=== PATIENT | female | born 2000 | race Caucasian/White ===

== ENCOUNTER 2023-03-27 23:19 | Emergency (ER) | payer OTHER, SELFPAY ==
[2023-03-27 23:33] VITALS: BP 125/82; PULSE 82; RESP 16; TEMP 36.5; O2SAT 98; BMI 49.1
--- NOTE | 2023-03-28 00:22 | HMH.EDHA ---
Discharge Plan Disposition Patient Disposition: Home, Self-Care Condition: Fair Prescriptions Prescriptions: No Action ropinirole 1 mg tablet 1 mg PO DAILY norethindrone-e.estradiol-iron 1 mg-20 mcg (21)/75 mg (7) tablet 1 tab PO DAILY buspirone 10 mg tablet 10 mg PO DAILY hydroxyzine HCl 25 mg tablet 25 mg PO DAILY escitalopram oxalate [Lexapro] 20 mg tablet 20 mg PO DAILY aripiprazole 10 mg tablet 7.5 mg PO DAILY Rx Instructions: *MD changed her to 10mg, but she felt that was too much so she self adjusted and is taking 7.5mg at this time. Referrals Follow up/Referrals: Ori Vincent MD [Primary Care Provider] - See instructions Clinical Impressions Clinical Impression: Headache, Elevated liver enzymes Stand Alone Forms Stand Alone Forms: Work/School Release Instructions Patient Instructions: DI for Headache Discharge ED Provider: Efren (ED)Je Headache HPI General Chief Complaint: Headache Stated Complaint: severe headache Time Seen by Provider: 03/28/23 00:23 Mode of Arrival: Family Vehicle Source of Information: Patient and Medical Record Limitations: No Limitations Description of Symptoms (Recalled from ER Triage Doc. by RN): 22 yo female presents with CC of intense headache along my muslim area bilaterally, with slight visual issue noted earlier this date where she stated she was noting her vision to have black spots peripheally. Patient denies LOC. VSS. States that she saw her MD earlier this week for medication adjustment due to symptoms associated with loss of her brother 6 weeks ago. 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 Afebrile. History of Present Illness HPI Narrative: bilat temp and occipital gonzalez with some visual sx- no fever/rash or trauma and diff gonzalez than baseline MD Complaint: headache Onset (ago): hour(s) Onset description: gradual Location: temporal and occipital Severity: moderate Quality: different than previous headaches Associated symptoms: none Treatments prior to arrival: none Related Data Home Medications Medication Instructions Recorded Confirmed aripiprazole 10 mg tablet 7.5 mg PO DAILY antipsychotic 03/27/23 03/27/23 buspirone 10 mg tablet 10 mg PO DAILY antipsychotic 03/27/23 03/27/23 escitalopram oxalate 20 mg tablet 20 mg PO DAILY Depression 03/27/23 03/27/23 (Lexapro) hydroxyzine HCl 25 mg tablet 25 mg PO DAILY Anxiety 03/27/23 03/27/23 norethindrone 1 mg-ethinyl 1 tab PO DAILY control 03/27/23 03/27/23 estradiol 20 mcg (21)-iron 75 mg (7) tablet ropinirole 1 mg tablet 1 mg PO DAILY unk 03/27/23 03/27/23 Allergies Allergy/AdvReac Type Severity Reaction Status Date / Time No Known Allergies Allergy Verified 03/27/23 23:38 [facility] History Hepatitis A Screen Attestation statement:: This patient has been screened for Hepatitis A risk factors. I have reviewed the patient's past medical history: Yes Social History Smoking Status: Current every day smoker [facility] Disclaimer: The information contained in this section may have been updated after the patient was seen, as this information can be updated by other users. Social History Smoking Status: Current every day smoker alcohol intake: never current occupational status: employed Travel in the last 8 weeks: None ROS Obtained: Yes All systems reviewed & no additional complaints except as documented Physical Exam General General appearance: alert and obese Head Head exam: normocephalic Eye Eye exam: Present PERRL and EOMI ENT ENT exam: Present mucous membranes moist Neck Neck exam: Present trachea midline Respiratory Respiratory exam: Absent respiratory distress Cardiovascular Cardiovascular exam: Present regular rate Abdominal Exam Abdominal exam: Present soft Extremities Exam Extremities exam: Present full ROM Neurological Exam Neurological exam: Pre
--- NOTE | 2023-03-28 00:35 | CT_ITS ---
PROCEDURE INFORMATION: Exam: CT Head Without Contrast Exam date and time: 03/28/2023 1:21 AM Age: 22 years old Clinical indication: Pain; Patient HX: States HX of concussions. C/O headache in the back of her head; Additional info: [place] TECHNIQUE: Imaging protocol: Computed tomography of the head without contrast. Radiation optimization: All CT scans at this facility use at least one of these dose optimization techniques: automated exposure control; mA and/or kV adjustment per patient size (includes targeted exams where dose is matched to clinical indication); or iterative reconstruction. REPORTING DATA: Count of CT and Cardiac NM exams in prior 12 months: This patient has received 0 known CTs and 0 known cardiac nuclear medicine studies in the 12 months prior to the current study. COMPARISON: No relevant prior studies available. FINDINGS: Brain: Normal. No hemorrhage. Unremarkable white matter. No mass effect. Cerebral ventricles: No ventriculomegaly. Pituitary gland and sella: Negative Paranasal sinuses: Mucous retention cyst right maxillary sinus. Mastoid air cells: Visualized mastoid air cells are well aerated. Orbital cavities: Negative. Parotid and submandibular glands: Negative Bones/joints: Unremarkable. No acute fracture. Soft tissues: Unremarkable. Vasculature: Negative. IMPRESSION: No evidence for intracranial hemorrhage, mass lesions or acute stroke.
[2023-03-28 00:43] LABS: Basophils # 0.1 K/mm3 (0-0.2); Basophils % 0.8 % (0.1-2.0); Eosinophils # 0.3 K/mm3 (0.0-0.4); Hematocrit 41.3 % (37.0-47.0); Hemoglobin 14.3 g/dL (12.2-16.2); Lymphocytes % 44.9 % (10-50); Mean Corpuscular HGB Conc 34.6 g/dL (31.8-35.4); Mean Corpuscular Hemoglobin 31.5 pg (27.0-31.2); Mean Corpuscular Volume 91.1 fl (81-99); Mean Platelet Volume 7.5 fl (7.4-10.4); Monocytes # 0.5 K/mm3 (0.1-1.0); Monocytes % 4.9 % (1.7-9.3); Neutrophils # 5.2 K/mm3 (1.8-7.8); Neutrophils % 46.5 % (37.0-80.0); Platelet Count 448 K/mm3 (142-424); Red Blood Count 4.53 M/mm3 (4.20-5.40); White Blood Count 11.2 K/mm3 (4.5-13.0)
[2023-03-28 00:48] LABS: Potassium 3.7 mmoL/L (3.5-5.1); Sodium 138 mmol/L (136-145)
[2023-03-28 00:49] LABS: Chloride 100 mmol/L (98-107)
[2023-03-28 00:50] LABS: Alanine Aminotransferase 87 U/L (12-78); Alkaline Phosphatase 81 U/L (38-126); Aspartate Amino Transferase 85 U/L (14-36); Blood Urea Nitrogen 15 mg/dl (7-17); Creatinine Clearance Estimated 90 mL/min (50-200); Estimated Glomerular Filt Rate 80 ml/min (>60); GFR (African American) 97 ML/MIN (>60)
[2023-03-28 00:51] LABS: Albumin Level 4.1 g/dl (3.5-5.0); Albumin/Globulin Ratio 1.4 (1.1-1.8); Anion Gap 17.7 mEq/L (5-15); Calcium 9.1 mg/dl (8.4-10.2); Carbon Dioxide 24 mmol/L (22.0-30.0); Globulin 2.9 g/dL (1.3-3.2); Glucose 91 mg/dl (74-100)
[2023-03-28 00:57] LABS: C-Reactive Protein 11.8 mg/L (0-4)
[2023-03-28 01:04] LABS: Bilirubin,Total 0.1 mg/dl (0.2-1.3)
[2023-03-28 01:12] LABS: Erythrocyte Sedimentation Rate 16 mm/hr (0-20)
[2023-03-28 03:04] VITALS: BP 121/85; PULSE 79; RESP 19; TEMP 36.7; O2SAT 98
== END 2023-03-28 05:16 | disposition home or self-care (01) ==
PROVIDERS: Emergency Provider Emergency Medicine; PCP Family Medicine
DX: R51.9 Headache, unspecified (principal); H53.8 Other visual disturbances; F17.200 Nicotine dependence, unspecified, uncomplicated
CPT/HCPCS: 70450; 80053; 85025; 85651; 86140; 96361; 96374; 99284; 99285; J0131

== ENCOUNTER 2024-03-15 02:49 | Emergency (ER) | payer OTHER, SELFPAY ==
--- NOTE | 2024-03-15 03:00 | ECG_ITS ---
APPROVED REPORT Exam: Resting ECG HR:84 bpm ECG Measurements Heart Rate 84 AXES SD 122 P 58 QRSd 89 QRS 100 QT 348 T -3 QTc 389 Conclusion SINUS RHYTHM BORDERLINE RIGHT AXIS DEVIATION [QRS AXIS > 90] ABNORMAL QRS-T ANGLE [QRS-T AXIS DIFFERENCE > 60] Electronically signed by : CAROLE FELIPE, 03/15/2024 03:38:35
[2024-03-15 03:01] VITALS: BP 151/89; PULSE 106; RESP 24; TEMP 36.6; O2SAT 96; BMI 49.9
--- NOTE | 2024-03-15 03:04 | CT_ITS ---
PROCEDURE INFORMATION: Exam: CT Head Without Contrast Exam date and time: 03/15/2024 3:39 AM Age: 23 years old Clinical indication: Numbness / parasthesia; Additional info: R sided numbness/tingling TECHNIQUE: Imaging protocol: Computed tomography of the head without contrast. Radiation optimization: All CT scans at this facility use at least one of these dose optimization techniques: automated exposure control; mA and/or kV adjustment per patient size (includes targeted exams where dose is matched to clinical indication); or iterative reconstruction. COMPARISON: CT HEAD/BRAIN WO CON 03/28/2023 1:21 AM FINDINGS: Brain: No hemorrhage. Unremarkable white matter. No mass effect. Preserved alvarado-white interfaces. Cerebral ventricles: No ventriculomegaly. Paranasal sinuses: Diffuse mucosal thickening throughout the maxillary sinuses. Remaining paranasal sinuses are clear. No acute air-fluid levels. Mastoid air cells: Visualized mastoid air cells are well aerated. Bones: Unremarkable. No acute fracture. Soft tissues: Unremarkable. IMPRESSION: 1. No evidence of acute intracranial hemorrhage, mass effect, or edema. 2. Maxillary sinus mucosal thickening without acute air-fluid levels.
--- NOTE | 2024-03-15 03:04 | CT_ITS ---
PROCEDURE INFORMATION: Exam: CTA Head With Contrast, Arteriography Exam date and time: 03/15/2024 3:59 AM Age: 23 years old Clinical indication: Numbness; Additional info: R sided numbness/tingling TECHNIQUE: Imaging protocol: Computed tomographic angiography of the head with contrast. Exam focused on the arteries. 3D rendering (Not supervised by radiologist): MIP and/or 3D reconstructed images were created by the technologist. Radiation optimization: All CT scans at this facility use at least one of these dose optimization techniques: automated exposure control; mA and/or kV adjustment per patient size (includes targeted exams where dose is matched to clinical indication); or iterative reconstruction. Contrast material: ISOVUE 370; Contrast volume: 100 ml; Contrast route: INTRAVENOUS (IV); COMPARISON: CT HEAD/BRAIN WO CON 03/15/2024 3:39 AM FINDINGS: ANTERIOR CIRCULATION: Right internal carotid artery: Intracranial segment is patent with no significant stenosis. No aneurysm. Right middle cerebral artery: No occlusion or significant stenosis. No aneurysm. Right anterior cerebral artery: No occlusion or significant stenosis. No aneurysm. Left internal carotid artery: Intracranial segment is patent with no significant stenosis. No aneurysm. Left middle cerebral artery: No occlusion or significant stenosis. No aneurysm. Left anterior cerebral artery: No occlusion or significant stenosis. No aneurysm. POSTERIOR CIRCULATION: Right vertebral artery: No occlusion or significant stenosis. No aneurysm. Left vertebral artery: No occlusion or significant stenosis. No aneurysm. Basilar artery: No occlusion or significant stenosis. No aneurysm. Right posterior cerebral artery: No occlusion or significant stenosis. No aneurysm. Left posterior cerebral artery: No occlusion or significant stenosis. No aneurysm. Veins: Patent venous dural sinuses and tributaries. Brain: No definite mass, mass effect, or midline shift. Cerebral ventricles: No ventriculomegaly. Dental: Impacted maxillary and mandibular molars. Bones/joints: Unremarkable. No acute fracture. Soft tissues: Tiny right parietal scalp soft tissue nodule. IMPRESSION: No evidence of large vessel occlusion, vascular malformation, or aneurysm. No visible intracranial atherosclerosis.
--- NOTE | 2024-03-15 03:04 | CT_ITS ---
PROCEDURE INFORMATION: Exam: CT Thoracic Spine Without Contrast Exam date and time: 03/15/2024 3:52 AM Age: 23 years old Clinical indication: Numbness; Additional info: R sided numbness/tingling TECHNIQUE: Imaging protocol: Computed tomography of the thoracic spine without contrast. Radiation optimization: All CT scans at this facility use at least one of these dose optimization techniques: automated exposure control; mA and/or kV adjustment per patient size (includes targeted exams where dose is matched to clinical indication); or iterative reconstruction. COMPARISON: CT CERVICAL SPINE WO CON 03/15/2024 3:50 AM FINDINGS: Bones/joints: No acute fracture. Normal alignment. No significant disc bulge or herniation. No severe spinal canal stenosis. No significant neural foraminal narrowing. Soft tissues: Unremarkable. IMPRESSION: Unremarkable CT Spine.
--- NOTE | 2024-03-15 03:04 | CT_ITS ---
PROCEDURE INFORMATION: Exam: CT Lumbar Spine Without Contrast Exam date and time: 03/15/2024 3:54 AM Age: 23 years old Clinical indication: Numbness; Additional info: R sided numbness/tingling TECHNIQUE: Imaging protocol: Computed tomography of the lumbar spine without contrast. Radiation optimization: All CT scans at this facility use at least one of these dose optimization techniques: automated exposure control; mA and/or kV adjustment per patient size (includes targeted exams where dose is matched to clinical indication); or iterative reconstruction. COMPARISON: CT THORACIC SPINE WO CON 03/15/2024 3:52 AM FINDINGS: Bones/joints: No acute fracture. Normal alignment. No significant disc bulge or herniation. No severe spinal canal stenosis. No significant neural foraminal narrowing. Soft tissues: Unremarkable. IMPRESSION: No acute findings.
--- NOTE | 2024-03-15 03:04 | CT_ITS ---
PROCEDURE INFORMATION: Exam: CTA Neck With Contrast Exam date and time: 03/15/2024 3:59 AM Age: 23 years old Clinical indication: Numbness; Additional info: R sided numbness/tingling TECHNIQUE: Imaging protocol: Computed tomographic angiography of the neck with contrast. Exam focused on the cervical segments of the vasculature. 3D rendering (Not supervised by radiologist): MIP and/or 3D reconstructed images were created by the technologist. Radiation optimization: All CT scans at this facility use at least one of these dose optimization techniques: automated exposure control; mA and/or kV adjustment per patient size (includes targeted exams where dose is matched to clinical indication); or iterative reconstruction. Contrast material: ISOVUE 370; Contrast volume: 100 ml; Contrast route: INTRAVENOUS (IV); COMPARISON: CT CERVICAL SPINE WO CON 03/15/2024 3:50 AM FINDINGS: Right common carotid artery: No stenosis. No dissection or occlusion. Right internal carotid artery: No stenosis of the extracranial segment. No dissection or occlusion. Right external carotid artery: No occlusion or stenosis of the origin. Left common carotid artery: No stenosis. No dissection or occlusion. Left internal carotid artery: No stenosis of the extracranial segment. No dissection or occlusion. Left external carotid artery: No occlusion or stenosis of the origin. Right vertebral artery: No stenosis. No dissection or occlusion. Left vertebral artery: No stenosis. No dissection or occlusion. Pharynx: Normal fossa of Rosenmuller. Normal tonsillar pillars. Larynx: Normal epiglottis. Symmetric vocal folds. Thyroid: Homogeneous thyroid. Soft tissues: Normal. No significant soft tissue swelling. Bones/joints: Normal appearance of the cervical spine without evidence of spinal canal or neural foraminal stenosis. Lungs: Clear lung apices. IMPRESSION: Widely patent carotid and vertebral arteries in the neck. REFERENCES: NASCET CRITERIA. The degree of stenosis in the cervical segment of the internal carotid artery is based on NASCET criteria. Normal is no stenosis. Mild is less than 50% stenosis. Moderate is 50-69% stenosis. Severe is 70% to 99% stenosis. Total occlusion is no detectable patent lumen.
--- NOTE | 2024-03-15 03:08 | ED_ITS ---
Discharge Plan Disposition Patient Disposition: Home, Self-Care Condition: Good Prescriptions Prescriptions: No Action aripiprazole 5 mg tablet 5 mg PO DAILY cetirizine 10 mg tablet 10 mg PO DAILY ciprofloxacin HCl [Cipro] 250 mg tablet 250 mg PO BID 3 Days Qty: 6 0RF ropinirole 1 mg tablet 1 mg PO DAILY norethindrone-e.estradiol-iron 1 mg-20 mcg (21)/75 mg (7) tablet 1 tab PO DAILY buspirone 10 mg tablet 10 mg PO DAILY escitalopram oxalate [Lexapro] 20 mg tablet 20 mg PO DAILY hydroxyzine HCl 25 mg tablet 25 mg PO BID Referrals Follow up/Referrals: Ori Vincent MD [Primary Care Provider] - See instructions Activity Restrictions/Add. Instructions Additional Instructions/Restrictions: You were evaluated in the emergency department today. At this time, your CT scans are reassuring. I feel your symptoms are largely related to anxiety, but your vitamin B12 levels are slightly low and your thyroid hormones are slightly elevated. I recommend very close follow-up with your primary care provider for reassessment of labs and management of these things. Return to the emergency department for new or worsening symptoms Clinical Impressions Clinical Impression: Low vitamin B12 level, Anxiety, High serum thyroxine (T4), Paresthesias Instructions Patient Instructions: DI for Anxiety -- Adult, DI for Numbness/Tingling Discharge ED Provider: Yessica Alford General Adult HPI General Chief complaint: Anxiety Stated complaint: right side of body numb Time Seen by Provider: 03/15/24 02:53 Mode of Arrival: Family Vehicle Source of Information: Patient Limitations: No Limitations Description of Symptoms (Recalled from ER Triage Doc. by RN): 23 yo female with cc of right foot and right hand numbness;right low back pain; patient has a significant medical history of anxiety and depression for which she takes buspar,lexapro, and vistaril. zyrtec daily for allergies. No previous surgeries. States 2 weeks ago is when it started but it has progressively gotten worse. History of Present Illness HPI narrative: This patient is a 23-year-old female with a history of depression/anxiety, PCOS, and obesity presenting to the emergency department with concern for intermittent numbness and tingling. Patient states that she started Vistaril 2 weeks ago nightly. For the last week, she has been having intermittent migratory paresthesias which seem to primarily affect her right foot and hand. She also states she has had some right-sided low back pain. Currently, she is numb and tingly in her right hand and right foot and she is very anxious. She denies any saddle anesthesia, urinary retention, incontinence, or recent injuries. No history of IV drug use. No recent falls or traumatic injuries. No chest pain, shortness of breath, abdominal pain, vomiting, change in bowel movements, or other concerns. She also denies any significant headache, vision changes, motor deficits, or other issues. Related Data Home Medications Medication Instructions Recorded Confirmed buspirone 10 mg tablet 10 mg PO DAILY antipsychotic 03/27/23 01/28/24 escitalopram oxalate 20 mg tablet 20 mg PO DAILY Depression 03/27/23 01/28/24 (Lexapro) norethindrone 1 mg-ethinyl 1 tab PO DAILY control 03/27/23 01/28/24 estradiol 20 mcg (21)-iron 75 mg (7) tablet ropinirole 1 mg tablet 1 mg PO DAILY unk 03/27/23 01/28/24 aripiprazole 5 mg tablet 5 mg PO DAILY 01/28/24 01/28/24 cetirizine 10 mg tablet 10 mg PO DAILY 01/28/24 01/28/24 hydroxyzine HCl 25 mg tablet 25 mg PO BID Anxiety 01/28/24 01/28/24 Previous Rx's Medication Instructions Recorded ciprofloxacin HCl 250 mg tablet 250 mg PO BID 3 days #6 tabs 01/30/24 (Cipro) Allergies Allergy/AdvReac Type Severity Reaction Status Date / Time No Known Allergies Allergy Verified 01/28/24 14:07 [facility] Disclaimer: The information contained in this section may have been updated after the patient was seen, as this information can be updated by other users. Medical History Incontinence overflow, urine Vaginal discharge Vaginal odor Hair loss Recurrent major depression resistant to treatment History of concussion Family History Other Coronary artery disease Hypertension Stroke Social History Smoking Status: Unknown if ever smoked quit status: considering quitting second hand exposure: No alcohol intake: never counseling given: No substance use type: denies use, marijuana and other details: she states that she used to smoke a clot of weed; made her too paranoid counseling given: No current occupational status: employed Travel in the last 8 weeks: None adopted: No caregiver/support person: No foster care: No household members: family housing: house lives independently: No marital status: single number of children: 0 number of grandchildren: 0 education level: other details: homeschooled; gave up on this; never finished; working on [employer] current occupation: works at [employer] Recent Travel: No sexually active: No caffeine: Yes physical activity: none cherelle/gnosticist: None special cherelle needs: No working smoke detector in home: Yes fire extinguisher in home: Yes carbon monox detector in home: Yes firearms in home: No do you feel safe at home: Yes victim of physical abuse: No victim of emotional abuse: No victim of sexual abuse: No would you like helpful sources: No ROS Obtained: Yes All systems reviewed & no additional complaints except as documented Physical Exam General General appearance: alert, in no apparent distress, anxious and obese Head Head exam: atraumatic and normocephalic Eye Eye exam: Present normal appearance, PERRL and EOMI ENT ENT exam: Present normal exam, normal oropharynx, mucous membranes moist and normal external ear exam Neck Neck exam: Present normal inspection, full ROM and trachea midline; Absent tenderness Chest Chest inspection: Present normal inspection and symmetric chest wall rise; Absent tenderness Respiratory Respiratory exam: Present normal lung sounds bilaterally; Absent respiratory distress, wheezes, stridor or accessory muscle use Cardiovascular Cardiovascular exam: Present regular rate and normal rhythm Abdominal Exam Abdominal exam: Present soft; Absent distention, tenderness or guarding Extremities Exam Extremities exam: Present normal inspection, full ROM and normal capillary refill; Absent tenderness or edema Back Exam Back exam: Present normal inspection and full ROM; Absent tenderness Neurological Exam Neurological exam: Present alert, oriented X3, CN II-XII intact, normal gait and other (No focal motor or sensory deficits in any of her extremities.); Absent motor sensory deficit Expanded Neurological Exam Patient oriented to: Present person, place and time Speech: Present fluid speech Cranial nerves: Normal: EOM function (II, III, IV, ), facial sensation (V), facial palsy (VII), spinal accessory function (XI) and tongue deviation (XII) Cerebellar function: normal gait Motor strength - LUE: 5/5 Motor strength - RUE: 5/5 Motor strength - LLE: 5/5 Motor strength - RLE: 5/5 Sensory exam upper extremity: Normal: light touch Sensory exam lower extremity: Normal: light touch Coma scale eye opening: Spontaneous Coma scale motor response: Obeys commands Coma scale verbal response: Oriented Coma scale total: 15 Psychiatric Psychiatric exam: Present anxious Skin Skin exam: Present warm and dry Medical Decision Making Medical Records Medical records reviewed: Yes I reviewed the patient's medical records. Lyndon Inquiry Pt receiving controlled substance: No Vital Signs: 03/15/24 03:01 03/15/24 03:31 03/15/24 04:12 Temperature 97.8 F Temperature Source Oral Pulse Rate 74 83 Pulse Rate [Right Brachial] 106 H Respiratory Rate 24 Blood Pressure 117/74 132/85 Blood Pressure [Right Arm] 151/89 H Blood Pressure Mean 91 97 Blood Pressure Mean [Right Arm] 109 Blood Pressure Source Blood Pressure Source [Right Arm] Automatic Cuff Blood Pressure Position Blood Pressure Position [Right Arm] Sitting 02 Sat by Pulse Oximetry 96 96 96 Oxygen Delivery Method Room Air Room Air Room Air 03/15/24 05:24 Temperature 97.8 F Temperature Source Oral Pulse Rate 81 Pulse Rate [Right Brachial] Respiratory Rate 15 Blood Pressure 102/59 L Blood Pressure [Right Arm] Blood Pressure Mean Blood Pressure Mean [Right Arm] Blood Pressure Source Automatic Cuff Blood Pressure Source [Right Arm] Blood Pressure Position Sitting Blood Pressure Position [Right Arm] 02 Sat by Pulse Oximetry Oxygen Delivery Method Room Air Lab Data Lab results reviewed: Yes I reviewed the patient's lab results. Lab Results 03/15/24 02:58: WBC 11.9 H, RBC 4.79, Hgb 15.1, Hct 44.7, MCV 93.3, MCH 31.5 H, MCHC 33.8, RDW 13.7, Plt Count 426 H, MPV 7.4, Neut % (Auto) 47.5, Lymph % (Auto) 42.9, Braxton % (Auto) 4.3, Eos % (Auto) 4.0, Baso % (Auto) 1.2, Neut # (Auto) 5.7, Lymph # (Auto) 5.1 H, Braxton # (Auto) 0.5, Eos # (Auto) 0.5 H, Baso # (Auto) 0.2, Sodium 139, Potassium 3.8, Chloride 106, Carbon Dioxide 27, Anion Gap 9.8, BUN 14, Creatinine 0.90, Estimated Creat Clear 89, Estimated GFR 79, Est GFR ( Amer) 96, Glucose 111 H, Hemoglobin A1c 5.1, Calcium 9.6, Magnesium 1.8, Total Bilirubin 0.7, AST 67 H, ALT 79 H, Alkaline Phosphatase 76, Total Protein 7.5, Albumin 4.4, Globulin 3.1, Albumin/Globulin Ratio 1.4, V itamin B12 234 L, TSH 5.64 H, Thyroxine (T4) 15.0 H, Serum HCG, Qual Negative 03/15/24 02:58 03/15/24 02:58 Orders (Tests/Meds): ED MEDICATIONS Discontinued Medications Generic Name Dose Route Start Last Admin Trade Name Freq PRN Reason Stop Dose Admin Iopamidol 100 ml 03/15/24 04:09 03/15/24 04:14 Iopamidol-370 (76%);100ml Bottle IV 03/15/24 04:10 100 ml ONCE ONE Administration Lorazepam 0.5 mg 03/15/24 03:18 03/15/24 03:37 Lorazepam 2mg/Ml Vial IV 03/15/24 03:19 0.5 mg ONCE ONE Administration Sodium Chloride 10 ml 03/15/24 03:18 Sodium Chloride 0.9% 10ml Vial IV 04/14/24 03:17 NEEDED PRN to Dilute Lorazepam inj Sodium Chloride 50 ml 03/15/24 04:09 03/15/24 04:14 0.9 % Sodium Chloride 50 Ml Vial IV 03/15/24 04:10 50 ml ONCE ONE Administration Sodium Chloride 10 ml 03/15/24 04:09 03/15/24 04:14 Sodium Chloride 0.9% 10ml Syr (Rad Only) IV 04/14/24 04:08 10 ml NEEDED PRN Administration Maintain IV Site ORDERS Category Date Time Status CT angio head Stat Cat Scan 03/15/24 03:[address] angio neck Stat Cat Scan 03/15/24 03:[address] cervical spine wo con Stat Cat Scan 03/15/24 03:[address] head/brain wo con Stat Cat Scan 03/15/24 03:[address] lumbar spine wo con Stat Cat Scan 03/15/24 03:[address] thoracic spine wo con Stat Cat Scan 03/15/24 03:04 Completed XR chest portable Stat Exams 03/15/24 03:04 Taken Complete Blood Count Auto Diff Stat Lab 03/15/24 02:58 Completed Comprehensive Metabolic Panel Stat Lab 03/15/24 02:58 Completed HCG Qualitative, Serum Stat Lab 03/15/24 02:58 Completed Hemoglobin A1C Stat Lab 03/15/24 02:58 Completed Magnesium Stat Lab 03/15/24 02:58 Completed T4 (Thyroxine) Stat Lab 03/15/24 02:58 Completed Thyroid Stimulating Hormone Stat Lab 03/15/24 02:58 Completed Vitamin B12 Stat Lab 03/15/24 02:58 Completed ECG Data Tracing #1: I reviewed this ECG and interpreted as documented below: Normal sinus rhythm with a ventricular rate of [address] changes concerning for ischemia. Normal axis and intervals. ECG initial impression date: 03/15/24 ECG initial impression time: 03:03 Medical Decision Narrative: In summary, this patient is a 23-year-old female presenting to the Emergency Department for evaluation of intermittent numbness and tingling in her right hand and right foot for the last week. She did recently start taking Vistaril in addition to her other anxiety medications. Differential diagnoses considered include but are not limited to anxiety, peripheral neuropathy, adverse drug reaction electrolyte derangements, intracranial lesion, spine lesion. Ruling out the most morbid conditions drove assessment. It should be noted patient's history includes anxiety which is not at goal therapy. This complicates all aspects of care by increasing patient's risk for morbidity. I reviewed patient's past medical records and noted previous evaluations by [facility] for her anxiety. On exam, patient is very anxious appearing but otherwise has no focal neurologic deficits. She has no alarm findings or history concerning for cauda equina syndrome. Cardiopulmonary exams and abdominal exam are reassuring. Vitals are reassuring. I feel her symptoms are most likely related to anxiety. Workup included CBC, CMP, TSH, T4, magnesium, hemoglobin A1c, chest x-ray, CT angiogram of the head and neck as well as CT head, C/T/L-spine without contrast to rule out other emergent pathology. I independently interpreted CT scan prior to the radiologist read and noted no obvious intracranial masses, hemorrhage, fracture, spinal cord narrowing, or other concerns. Please see their read for final interpretation. Labs were obtained that demonstrated mildly elevated TSH and T4 as well as mildly low B12. Labs otherwise are nonactionable. On reassessment, patient is resting, with improved symptoms and improved numbness and tingling after administration of Ativan to treat anxiety. She tolerated this very well. I feel her symptoms are likely related to anxiety. I notified her of her thyroid abnormalities as well as low vitamin B12 and advised that she follow-up very closely with her primary care provider for this. Based on reassuring workup, exam, and history and the fact that the patient is resting comfortably with normal vital signs and is able to ambulate without difficulty, I feel that she is appropriate for discharge home. Strict return precautions were given, and the patient was discharged after all questions were answered. Critical Care Critical Care Time Critical Care Time: No
[2024-03-15 03:10] LABS: Basophils # 0.2 K/mm3 (0-0.2); Basophils % 1.2 % (0.1-2.0); Eosinophils # 0.5 K/mm3 (0.0-0.4); Hematocrit 44.7 % (37.0-47.0); Hemoglobin 15.1 g/dL (12.2-16.2); Lymphocytes # 5.1 K/mm3 (0.7-4.5); Lymphocytes % 42.9 % (10-50); Mean Corpuscular HGB Conc 33.8 g/dL (31.8-35.4); Mean Corpuscular Hemoglobin 31.5 pg (27.0-31.2); Mean Corpuscular Volume 93.3 fl (81-99); Mean Platelet Volume 7.4 fl (7.4-10.4); Monocytes # 0.5 K/mm3 (0.1-1.0); Monocytes % 4.3 % (1.7-9.3); Neutrophils # 5.7 K/mm3 (1.8-7.8); Neutrophils % 47.5 % (37.0-80.0); Platelet Count 426 K/mm3 (142-424); Red Blood Count 4.79 M/mm3 (4.20-5.40); Red Cell Distribution Width 13.7 % (11.5-17.5); White Blood Count 11.9 K/mm3 (4.8-10.8)
--- NOTE | 2024-03-15 03:11 | CT_ITS ---
PROCEDURE INFORMATION: Exam: CT Cervical Spine Without Contrast Exam date and time: 03/15/2024 3:50 AM Age: 23 years old Clinical indication: Numbness; Additional info: Numbness tingling/right side TECHNIQUE: Imaging protocol: Computed tomography of the cervical spine without contrast. Radiation optimization: All CT scans at this facility use at least one of these dose optimization techniques: automated exposure control; mA and/or kV adjustment per patient size (includes targeted exams where dose is matched to clinical indication); or iterative reconstruction. COMPARISON: CT HEAD/BRAIN WO CON 03/15/2024 3:39 AM FINDINGS: Bones: No evidence of acute cervical spine fracture or malalignment. No significant degenerative change is evident. Widely patent spinal canal and neural foramina. No visible disc bulge. Pharynx: Normal fossa of Rosenmuller. Normal tonsillar pillars. Larynx: Normal epiglottis. Symmetric vocal folds. Lungs: Clear lung apices. Thyroid: Homogeneous thyroid. Soft tissues: Unremarkable. IMPRESSION: Normal cervical spine. No structural abnormality to explain patient's symptoms.
[2024-03-15 03:12] LABS: Chloride 106 mmol/L (98-107); Sodium 139 mmol/L (136-145)
[2024-03-15 03:13] LABS: Potassium 3.8 mmoL/L (3.5-5.1)
--- NOTE | 2024-03-15 03:14 | PC.NURSE ---
provided socks to patient per family request
[2024-03-15 03:15] LABS: Alanine Aminotransferase 79 U/L (12-78); Albumin Level 4.4 g/dl (3.5-5.0); Albumin/Globulin Ratio 1.4 (1.1-1.8); Alkaline Phosphatase 76 U/L (38-126); Anion Gap 9.8 mEq/L (5-15); Aspartate Amino Transferase 67 U/L (14-36); Bilirubin,Total 0.7 mg/dl (0.2-1.3); Blood Urea Nitrogen 14 mg/dl (7-17); Calcium 9.6 mg/dl (8.4-10.2); Carbon Dioxide 27 mmol/L (22.0-30.0); Creatinine Clearance Estimated 89 mL/min (50-200); Estimated Glomerular Filt Rate 79 ml/min (>60); GFR (African American) 96 ML/MIN (>60); Globulin 3.1 g/dL (1.3-3.2); Glucose 111 mg/dl (74-100); Total Protein,Serum 7.5 g/dl (6.3-8.2)
[2024-03-15 03:16] LABS: Magnesium 1.8 mg/dl (1.6-2.3)
[2024-03-15 03:22] LABS: Hemoglobin A1C 5.1 % (4.0-6.0)
[2024-03-15 03:31] VITALS: BP 117/74; PULSE 74; O2SAT 96
[2024-03-15 03:36] LABS: HCG Qualitative, Serum Negative (Negative)
[2024-03-15] MEDS: LORazepam 2MG/ML VIAL 0.5 MG IV (03:37)
[2024-03-15 03:46] LABS: Thyroid Stimulating Hormone 5.64 uIU/mL (0.465-4.68)
[2024-03-15 04:11] LABS: Vitamin B12 234 pg/mL (239-931)
[2024-03-15 04:12] VITALS: BP 132/85; PULSE 83; O2SAT 96
[2024-03-15] MEDS: 0.9 % SODIUM CHLORIDE 50 ML VIAL IV (04:14)
[2024-03-15] MEDS: IOPAMIDOL-370 (76%);100ML BOTTLE 100 ML IV (04:14)
[2024-03-15] MEDS: SODIUM CHLORIDE 0.9% 10ML SYR (RAD ONLY) 10 ML IV (04:14)
[2024-03-15 05:24] VITALS: BP 102/59; PULSE 81; RESP 15; TEMP 36.6; O2SAT 96
== END 2024-03-15 05:25 | disposition home or self-care (01) ==
PROVIDERS: Emergency Provider Emergency Medicine; PCP Family Medicine
DX: R20.2 Paresthesia of skin (principal); R94.6 Abnormal results of thyroid function studies; E53.8 Deficiency of other specified B group vitamins; F41.9 Anxiety disorder, unspecified
CPT/HCPCS: 70450; 70496; 70498; 71045; 72125; 72128; 72131; 80053; 82607; 83036; 83735; 84436; 84443; 84703; 85025; 93005; 96374; 99285; Q9967

== ENCOUNTER 2024-09-13 19:54 | Outpatient (CLI) | payer OTHER, SELFPAY ==
[2024-09-13 20:48] LABS: Alanine Aminotransferase 105 U/L (12-78); Albumin Level 4.4 g/dl (3.5-5.0); Alkaline Phosphatase 70 U/L (38-126); Aspartate Amino Transferase 66 U/L (14-36); Bilirubin,Direct 0.4 mg/dl (0.0-0.4); Bilirubin,Indirect 0.2 mg/dL (0.0-0.9); Bilirubin,Total 0.6 mg/dl (0.2-1.3); Bilirubin,Unconjugated 0.2 mg/dL (0.0-1.1); Chol/HDL Ratio 1.8 (1-3.5); Cholesterol 133 mg/dl (140-200); HDL Cholesterol 74 mg/dl (40-60); Total Protein,Serum 7.2 g/dl (6.3-8.2); Triglycerides 139 mg/dl (30-150); VLDL Cholesterol 28 mg/dL (0-40)
[2024-09-13 20:59] LABS: Direct LDL Cholesterol 48.94 mg/dL (100-129)
[2024-09-13 21:08] LABS: Free Thyroxine Index 3.2 ug/dL (5.93-13.13); T4 (Thyroxine) 14.5 ug/dl (5.53-11.0); Triiodothryronine (T3) Uptake 22 % (23.5-40.5)
[2024-09-13 21:53] LABS: HIV (1&2) Antibody Rapid NONREACTIVE (NONREACTIVE)
[2024-09-15 09:39] LABS: HCV Ab Non Reactive (Non Reactive)
== END 2024-09-13 23:59 | disposition home or self-care (01) ==
LOC: LAB.DROPOF 19:55
PROVIDERS: PCP Family Medicine; Visit Provider Family Medicine
DX: R20.2 Paresthesia of skin (principal); R79.89 Other specified abnormal findings of blood chemistry; N39.490 Overflow incontinence
CPT/HCPCS: 80061; 80076; 84436; 84443; 84479; 86803; 87086; 87389

== ENCOUNTER 2024-09-15 14:23 | Outpatient (CLI) | payer OTHER, SELFPAY ==
[2024-09-15 17:56] LABS: Adenovirus,PCR Not Detected (NotDetected); Bordetella Pertussis Not Detected (NotDetected); Chlamydophila Pneumoniae, PCR Not Detected (NotDetected); Coronavirus 19, PCR Not Detected (NotDetected); Coronavirus 229E Not Detected (NotDetected); Coronavirus NL63 Not Detected (NotDetected); Coronavirus OC43 Not Detected (NotDetected); Coronovirus HKU1,PCR Not Detected (NotDetected); Human Metapneumovirus Not Detected (NotDetected); Influenza A, PCR Not Detected (NotDetected); Influenza AH1, 2009 Not Detected (NotDetected); Influenza AH1, PCR Not Detected (NotDetected); Influenza AH3,PCR Not Detected (NotDetected); Influenza B, PCR Not Detected (NotDetected); Mycoplasma Pneumoniae, PCR Not Detected (NotDetected); Parainfluenza 1, PCR Not Detected (NotDetected); Parainfluenza 2, PCR Not Detected (NotDetected); Parainfluenza 3, PCR Not Detected (NotDetected); Parainfluenza 4, PCR Not Detected (NotDetected); Respiratory Syncytial Virus Not Detected (NotDetected); Rhinovirus/Enterovirus Not Detected (NotDetected)
== END 2024-09-15 23:59 | disposition home or self-care (01) ==
LOC: LAB.DROPOF 09-16 11:20
PROVIDERS: PCP Nurse Practitioner Family; Visit Provider Nurse Practitioner Family
DX: J02.9 Acute pharyngitis, unspecified (principal); J98.8 Other specified respiratory disorders; B97.89 Other viral agents as the cause of diseases classified elsewhere
CPT/HCPCS: 87070; 87077; 87186; 87265; 87486; 87581; 87632; 87635

== ENCOUNTER 2024-09-16 03:21 | Emergency (ER) | payer OTHER, SELFPAY ==
--- NOTE | 2024-09-16 03:46 | XR_ITS ---
PROCEDURE INFORMATION: Exam: XR Chest Exam date and time: 09/16/2024 4:38 AM Age: 24 years old Clinical indication: Other: Light headed; Additional info: Lightheaded TECHNIQUE: Imaging protocol: Radiologic exam of the chest. Views: 2 views. COMPARISON: CT ANGIO NECK 03/15/2024 3:59 AM FINDINGS: Lungs: Unremarkable. No consolidation. Pleural spaces: Unremarkable. No pleural effusion. No pneumothorax. Heart/Mediastinum: Unremarkable. No cardiomegaly. Bones/joints: Unremarkable. IMPRESSION: No acute findings.
[2024-09-16 03:49] VITALS: BP 135/87; PULSE 104; RESP 22; TEMP 36.9; O2SAT 100; BMI 49.0
--- NOTE | 2024-09-16 04:14 | HMH.EDGENADL ---
Discharge Plan Disposition Patient Disposition: Home, Self-Care Prescriptions Prescriptions: No Action cetirizine 10 mg tablet 10 mg PO DAILY desvenlafaxine succinate [Pristiq] 50 mg tablet extended release 24 hr 50 mg PO DAILY Qty: 30 1RF levothyroxine 50 mcg tablet PO cyanocobalamin (vitamin B-12) 1,000 mcg tablet PO ciprofloxacin HCl [Cipro] 250 mg tablet 250 mg PO BID Qty: 14 0RF adapalene 0.3 % gel 1 applic topical HS Qty: 45 2RF ropinirole 1 mg tablet 1 mg PO DAILY norethindrone-e.estradiol-iron 1 mg-20 mcg (21)/75 mg (7) tablet 1 tab PO DAILY hydroxyzine HCl 25 mg tablet 25 mg PO BID Referrals Follow up/Referrals: Marycruz Mata APRN [Primary Care Provider] - See instructions Activity Restrictions/Add. Instructions Additional Instructions/Restrictions: You were evaluated in the ER and are appropriate for discharge at this time. Please call behavioral health first thing in the morning and make an appointment with them for immediate reevaluation. Drink plenty of water and continue taking your home medications. You do not have urinary tract infection, you do not have to take the antibiotic that was prescribed to you since you do not have infection. Return to the ER with new, worsening, or otherwise concerning symptoms. Clinical Impressions Clinical Impression: Depression, Anxiety, Tearfulness, Drug withdrawal Print Language Print Language: Belgian Discharge ED Provider: Bruce Garcia General Adult HPI General Chief complaint: Anxiety Stated complaint: sore throat, lightheaded Time Seen by Provider: 09/16/24 03:46 Mode of Arrival: Ambulatory Source of Information: Patient Limitations: No Limitations Description of Symptoms (Recalled from ER Triage Doc. by RN): Pt reports to ED with cc of lightheadness. Pt states she has been feeling weird for the last couple of weeks. Pt states she has been winging off of Lexpro 25mg for the past month and started a new medication of Pristiq at 50mg. Pt reports having a headache a few nights ago but denies a headache now. Pt denies having any pain at this time. Pt reports her last dose of Lexpro was aprrox around . Pt reports her anxiety has been increasingly worse. Pt reports having a low dose fever last night. History of Present Illness HPI narrative: 24-year-old female presents to the ER with a chief complaint of lightheadedness and feeling weird for the last few weeks. Patient states she has been weaning off Lexapro. She states she took half dose of her Lexapro for 2 weeks and then stopped taking it on 09/08. Patient reports she is now on Pristiq. She states since coming off the Lexapro she has had the symptoms of lightheadedness, feeling like she is glitching , she has had occasional brain zaps, fatigue, and increasing anxiety. She also reports tearfulness. She states everything makes her cry and she feels very sad, she reports she is not suicidal or homicidal. She has no thoughts of self-harm. She also reports she is taking her medications as prescribed. Patient does report she has been evaluated twice in the last week. She states she was told she had urinary tract infection and was prescribed antibiotics which she has not yet started because she was worried about interactions. She states then she developed sore throat and was evaluated for possible strep but that was negative. Patient denies chest pain, shortness of breath, nausea, vomiting, diarrhea, abdominal pain, numbness, tingling, weakness, or any other associated symptoms. Despite feeling lightheaded she has had no syncope, vision changes, or other neurologic symptoms. She denies currently having dysuria or hematuria. Related Data Home Medications ?Medication ?Instructions ?Recorded ?Confirmed norethindrone 1 mg-ethinyl 1 tab PO DAILY control 03/27/23 09/15/24 estradiol 20 mcg (21)-iron 75 mg (7) tablet ropinirole 1 mg tablet 1 mg PO DAILY unk 03/27/23 09/15/24 cetirizine 10 mg tablet 10 mg PO DAILY 01/28/24 09/15/24 hydroxyzine HCl 25 mg tablet 25 mg PO BID Anxiety 01/28/24 09/15/24 cyanocobalamin (vitamin B-12) mcg PO 09/13/24 09/15/24 1,000 mcg tablet levothyroxine 50 mcg tablet mcg PO 09/13/24 09/15/24 Previous Rx's ?Medication ?Instructions ?Recorded desvenlafaxine succinate 50 mg 50 mg PO DAILY #30 tabs 08/23/24 tablet,extended release 24 hr (Pristiq) adapalene 0.3 % topical gel 1 applic topical HS #45 grams 09/14/24 ciprofloxacin HCl 250 mg tablet 250 mg PO BID #14 tabs 09/14/24 (Cipro) Allergies Allergy/AdvReac Type Severity Reaction Status Date / Time No Known Allergies Allergy Verified 09/15/24 14:22 [facility] Disclaimer: The information contained in this section may have been updated after the patient was seen, as this information can be updated by other users. Medical History (Updated 09/16/24 @ 06:05 by Bruce Garcia MD) Headache Anxiety UTI (urinary tract infection) Incontinence overflow, urine Vaginal discharge Vaginal odor Hair loss Recurrent major depression resistant to treatment History of concussion Family History Other Coronary artery disease Hypertension Stroke Social History Smoking Status: Current every day smoker tobacco type: e-cigarettes quit status: considering quitting second hand exposure: No alcohol intake: never counseling given: No substance use type: denies use, marijuana and other details: she states that she used to smoke a clot of weed; made her too paranoid counseling given: No current occupational status: employed Travel in the last 8 weeks: None adopted: No caregiver/support person: No foster care: No household members: family housing: house lives independently: No marital status: single number of children: 0 number of grandchildren: 0 education level: other details: homeschooled; gave up on this; never finished; working on [employer] current occupation: works at [employer] Recent Travel: No sexually active: No caffeine: Yes physical activity: none cherelle/quaker: None special cherelle needs: No working smoke detector in home: Yes fire extinguisher in home: Yes carbon monox detector in home: Yes firearms in home: No do you feel safe at home: Yes victim of physical abuse: No victim of emotional abuse: No victim of sexual abuse: No would you like helpful sources: No Other Medical History Have you received the Pneumonia Vaccine: No ROS Obtained: Yes Systems reviewed as appropriate & no additional complaints except as documented ROS per HPI Physical Exam General General appearance: alert and in no apparent distress Head Head exam: atraumatic and normocephalic Eye Eye exam: Present PERRL and EOMI ENT ENT exam: Present mucous membranes moist Neck Neck exam: Present normal inspection and full ROM Chest Chest inspection: Present symmetric chest wall rise Respiratory Respiratory exam: Present normal lung sounds bilaterally; Absent respiratory distress, wheezes or stridor Cardiovascular Cardiovascular exam: Present regular rate and normal rhythm Abdominal Exam Abdominal exam: Present soft; Absent distention or tenderness Extremities Exam Extremities exam: Present full ROM; Absent edema Back Exam Back exam: Absent CVA tenderness (R) or CVA tenderness (L) Neurological Exam Neurological exam: Present alert and oriented X3; Absent motor sensory deficit Psychiatric Psychiatric exam: Present depressed, anxious and other (tearful but able to be calmed); Absent homicidal ideation or suicidal ideation Skin Skin exam: Present warm and dry Medical Decision Making Medical Records Medical records reviewed: Yes I reviewed the patient's medical records. Screening: Per USPSTF and CDC recommendations, given the prevalence of disease in our region, it is our hospital?s policy to screen for HIV and viral Hepatitis for all patients aged 18 and over and those with ongoing risk factors. MR Comment: Most recent behavioral health note was reviewed and demonstrates patient was started on Pristiq. Medicine notes demonstrate patient was evaluated for abnormal thyroid, she was started on ciprofloxacin for UTI but when I reviewed the labs from that visit, patient had no findings of infection on the urinalysis. PCP considering metformin for metabolic syndrome and oxybutynin for urge incontinence, patient has not been started on these. Lyndon Inquiry Pt receiving controlled substance: No Vital Signs: 09/16/24 03:49 09/16/24 04:38 09/16/24 04:39 Temperature 98.4 F Temperature Source Oral Pulse Rate 98 H 97 H Pulse Rate [Left Radial] 104 H Pulse Rate [Orthostatic Lying Right Radial] Pulse Rate [Orthostatic Sitting Right Radial] Pulse Rate [Orthostatic Standing Left Radial] Respiratory Rate 22 Blood Pressure 117/76 122/81 Blood Pressure [Orthostatic Lying Left Arm] Blood Pressure [Orthostatic Sitting Left Arm] Blood Pressure [Orthostatic Standing Left Arm] Blood Pressure [Right Arm] 135/87 Blood Pressure Mean 89 Blood Pressure Mean [Right Arm] 103 Blood Pressure Source [Right Arm] Automatic Cuff 02 Sat by Pulse Oximetry 100 98 99 Oxygen Delivery Method Room Air 09/16/24 04:40 09/16/24 04:43 Temperature Temperature Source Pulse Rate 104 H Pulse Rate [Left Radial] Pulse Rate [Orthostatic Lying Right Radial] 92 H Pulse Rate [Orthostatic Sitting Right Radial] 91 H Pulse Rate [Orthostatic Standing Left Radial] 94 H Respiratory Rate Blood Pressure 120/82 Blood Pressure [Orthostatic Lying Left Arm] 117/76 Blood Pressure [Orthostatic Sitting Left Arm] 122/81 Blood Pressure [Orthostatic Standing Left Arm] 120/82 Blood Pressure [Right Arm] Blood Pressure Mean Blood Pressure Mean [Right Arm] Blood Pressure Source [Right Arm] 02 Sat by Pulse Oximetry 97 Oxygen Delivery Method Lab Data Lab Results 09/16/24 04:13: WBC 12.2 H, RBC 4.45, Hgb 14.2, Hct 40.4, MCV 90.7, MCH 32.0 H, MCHC 35.2, RDW 13.4, Plt Count 399, MPV 7.3 L, Neut % (Auto) 58.4, Lymph % (Auto) 32.8, [place] % (Auto) 5.7, Eos % (Auto) 2.4, Baso % (Auto) 0.7, Neut # (Auto) 7.2, Lymph # (Auto) 4.0, [place] # (Auto) 0.7, Eos # (Auto) 0.3, Baso # (Auto) 0.1, Sodium 139, Potassium 4.2, Chloride 107, Carbon Dioxide 21 L, Anion Gap 15.2 H, BUN 15, Creatinine 0.90, Estimated Creat Clear 92, Estimated GFR 78, Est GFR ( Amer) 95, Glucose 107 H, Calcium 9.0, Total Bilirubin 0.6, AST 41 H D, ALT 61 D, Alkaline Phosphatase 65, Troponin I < 0.01, Total Protein 7.5, Albumin 4.3, Globulin 3.2, Albumin/Globulin Ratio 1.3, Serum HCG, Qual Negative, HIV 1&2 Antibody Rapid Nonreactive 09/16/24 04:26: Urine Color Yellow, Urine Appearance Clear, Urine pH 6.0, Ur Specific [place] 1.025, Urine Protein Negative, Urine Glucose (UA) Negative, Urine Ketones Negative, Urine Blood Negative, Urine Nitrate Negative, Urine Bilirubin Negative, Urine Urobilinogen 0.2, Ur Leukocyte Esterase Negative, Urine RBC None, Urine WBC None, Ur Squamous Epith Cells 5-10, Urine Bacteria Trace 09/16/24 04:13 09/16/24 04:13 Orders (Tests/Meds): ED MEDICATIONS Discontinued Medications Generic Name Dose Route Start Last Admin Trade Name Dago PRN Reason Stop Dose Admin Hydroxyzine Pamoate 100 mg 09/16/24 04:13 09/16/24 04:19 Hydroxyzine Pamoate 25mg Capsule PO 09/16/24 04:14 100 mg ONCE ONE Administration Sodium Chloride 1,000 mls @ 999 mls/hr 09/16/24 03:48 09/16/24 04:20 Sod Chlor 0.9% 1000ml Bag IV 09/16/24 04:48 999 mls/hr .Q1H1M ONE Administration ORDERS Category Date Time Status CXR 2 view (NOT portable) [XR chest 2V] Stat Exams 09/16/24 03:46 Completed CBC w/Auto Diff [Complete Blood Count Auto Diff] Stat Lab 09/16/24 04:13 Completed CMP [Comprehensive Metabolic Panel] Stat Lab 09/16/24 04:13 Completed HCG Qualitative, Serum Stat Lab 09/16/24 04:13 Completed HIV (1&2) Antibody Rapid Stat Lab 09/16/24 04:13 Completed Hep C Ab with Reflex to RNA Stat Lab 09/16/24 04:13 Received Trop I [Troponin I] Stat Lab 09/16/24 04:13 Completed Troponin I Q3H Lab 09/16/24 07:00 Ordered Troponin I Q3H Lab 09/16/24 10:00 Ordered Urinalysis and Microscopic Stat Lab 09/16/24 04:26 Completed ECG Request Stat Y 09/16/24 03:46 Ordered Medical Decision Narrative: In summary, this 24-year-old female with history of anxiety and depression which are comorbidities of current condition presents to the emergency department today with lightheadedness. On initial evaluation patient is hemodynamically stable, afebrile, tearful, anxious, able to be redirected and calm. Physical exam is overall benign, no suicidal or homicidal ideation, normal cardiopulmonary findings. Differential diagnosis includes but is not limited to medication withdrawal, depression, anxiety, I considered the possibility of cardiac abnormality, urinary tract infection, electrolyte abnormality, dehydration, but I have lower suspicion for these. Based on these concerns, I ordered serum labs, ECG, cardiac enzymes, urinalysis, test. Patient is already being evaluated and managed for thyroid abnormality by her PCP. This could be contributing to her symptoms. ECG personally interpreted demonstrates normal sinus rhythm, rate 95, borderline right axis, normal PA and QTc, no STEMI. Patient received IV fluids, hydroxyzine for treatment. Orthostatics were normal reassuring against orthostatic hypotension. Labs personally reviewed demonstrate test negative, UA negative for findings of infection, CMP nonactionable, transaminitis is improving, mild leukocytosis with WBC 12.2, no anemia, troponin is undetectably low less than 0.01, serial troponins are not indicated since patient is not having chest pain, no syncope, and her symptoms have been going on for many days. Chest x-ray personally interpreted does not demonstrate acute intrathoracic abnormality, see radiology read for final interpretation. On reevaluation, patient's affect is improved, she is resting more comfortably. She is appropriate for discharge. She has follow-up available with Dipti Lanza with behavioral health and I instructed her to call her immediately for close follow-up. Since patient had never started the ciprofloxacin for UTI and does not have findings of UTI on workup, I instructed her to not start this medication. I did ask her to follow-up with her primary care as well for her other chronic health concerns. She was also given instructions on return precautions for the ER. She indicated understanding to all instructions and was discharged in stable condition. Critical Care Critical Care Time Critical Care Time: No
[2024-09-16] MEDS: hydrOXYzine pamoate 25MG CAPSULE 100 MG PO (04:19)
[2024-09-16 04:20] LABS: Basophils # 0.1 K/mm3 (0-0.2); Basophils % 0.7 % (0.1-2.0); Eosinophils # 0.3 K/mm3 (0.0-0.4); Eosinophils % 2.4 % (0.1-12.0); Hematocrit 40.4 % (37.0-47.0); Hemoglobin 14.2 g/dL (12.2-16.2); Lymphocytes % 32.8 % (10-50); Mean Corpuscular HGB Conc 35.2 g/dL (31.8-35.4); Mean Corpuscular Volume 90.7 fl (81-99); Mean Platelet Volume 7.3 fl (7.4-10.4); Monocytes # 0.7 K/mm3 (0.1-1.0); Monocytes % 5.7 % (1.7-9.3); Neutrophils # 7.2 K/mm3 (1.8-7.8); Neutrophils % 58.4 % (37.0-80.0); Platelet Count 399 K/mm3 (142-424); Red Blood Count 4.45 M/mm3 (4.20-5.40); Red Cell Distribution Width 13.4 % (11.5-17.5); White Blood Count 12.2 K/mm3 (4.8-10.8)
[2024-09-16] MEDS: 0.9 % SODIUM CHLORIDE 1000ML 1,000 ML 999 ML IV (04:20)
[2024-09-16 04:25] LABS: Chloride 107 mmol/L (98-107)
[2024-09-16 04:26] LABS: Albumin Level 4.3 g/dl (3.5-5.0); Potassium 4.2 mmoL/L (3.5-5.1); Sodium 139 mmol/L (136-145)
[2024-09-16 04:28] LABS: Blood Urea Nitrogen 15 mg/dl (7-17); Creatinine Clearance Estimated 92 mL/min (50-200); Estimated Glomerular Filt Rate 78 ml/min (>60); GFR (African American) 95 ML/MIN (>60)
[2024-09-16 04:29] LABS: Alanine Aminotransferase 61 U/L (12-78); Albumin/Globulin Ratio 1.3 (1.1-1.8); Alkaline Phosphatase 65 U/L (38-126); Anion Gap 15.2 mEq/L (5-15); Aspartate Amino Transferase 41 U/L (14-36); Bilirubin,Total 0.6 mg/dl (0.2-1.3); Carbon Dioxide 21 mmol/L (22.0-30.0); Globulin 3.2 g/dL (1.3-3.2); Glucose 107 mg/dl (74-100); Total Protein,Serum 7.5 g/dl (6.3-8.2)
[2024-09-16 04:35] LABS: HCG Qualitative, Serum Negative (Negative)
--- NOTE | 2024-09-16 04:36 | ECG_ITS ---
APPROVED REPORT Exam: Resting ECG HR:95 bpm ECG Measurements Heart Rate 95 AXES OR 148 P 68 QRSd 89 QRS 93 QT 339 T 46 QTc 392 Conclusion SINUS RHYTHM BORDERLINE RIGHT AXIS DEVIATION [QRS AXIS > 90] No STEMI Electronically signed by : ELIEZER MICHELLE, 09/17/2024 06:47:40
[2024-09-16 04:38] VITALS: BP 117/76; PULSE 98; O2SAT 98
[2024-09-16 04:39] VITALS: BP 122/81; PULSE 97; O2SAT 99
[2024-09-16 04:40] VITALS: BP 120/82; PULSE 104; O2SAT 97
[2024-09-16 04:41] LABS: Troponin I < 0.01 ng/ml (0.00-0.034)
[2024-09-16 04:43] VITALS: BP 117/76; BP 120/82; BP 122/81; PULSE 91; PULSE 92; PULSE 94
[2024-09-16 04:49] LABS: HIV (1&2) Antibody Rapid NONREACTIVE (NONREACTIVE)
[2024-09-16 05:19] LABS: Microscopic, Urine URINE MICROSCOPIC (MICROSCOPIC)
[2024-09-16 05:20] LABS: Appearance,Urine CLEAR (Clear); Bilirubin,Urine Negative (Negative); Blood, Urine Negative (Negative); Color,Urine YELLOW (Yellow); Glucose,Urine (UA) Negative (Negative); Ketones,Urine Negative (Negative); Leukocyte Esterase,Urine Negative (Negative); Nitrate,Urine Negative (Negative); Protein,Urine Negative (Negative); Specific Gravity, Urine 1.025 (1.005-1.030); Urobilinogen,Urine 0.2 EU/dl (0.2)
[2024-09-16 05:33] LABS: Bacteria,Urine Trace /lpf
[2024-09-16 06:17] VITALS: BP 119/67; PULSE 92; RESP 20; TEMP 36.9; O2SAT 100
[2024-09-17 05:12] LABS: HCV Ab Non Reactive (Non Reactive)
== END 2024-09-16 06:14 | disposition home or self-care (01) ==
PROVIDERS: Emergency Provider Emergency Medicine; PCP Family Medicine
DX: F41.9 Anxiety disorder, unspecified (principal)
CPT/HCPCS: 71046; 80053; 81001; 84484; 84703; 85025; 86803; 87389; 93005; 96360; 99284; J7030

== ENCOUNTER 2024-09-17 22:27 | Emergency (ER) | payer OTHER, SELFPAY ==
[2024-09-17 22:44] VITALS: BP 181/100; PULSE 112; RESP 20; TEMP 37.1; O2SAT 99; BMI 49.0
[2024-09-17 23:15] LABS: Strep Scrn Group A (Rapid) Negative (Negative)
[2024-09-17 23:21] LABS: Adenovirus,PCR Not Detected (NotDetected); Bordetella Pertussis Not Detected (NotDetected); Chlamydophila Pneumoniae, PCR Not Detected (NotDetected); Coronavirus 19, PCR Not Detected (NotDetected); Coronavirus 229E Not Detected (NotDetected); Coronavirus NL63 Not Detected (NotDetected); Coronavirus OC43 Not Detected (NotDetected); Coronovirus HKU1,PCR Not Detected (NotDetected); Human Metapneumovirus Not Detected (NotDetected); Influenza A, PCR Not Detected (NotDetected); Influenza AH1, 2009 Not Detected (NotDetected); Influenza AH1, PCR Not Detected (NotDetected); Influenza AH3,PCR Not Detected (NotDetected); Influenza B, PCR Not Detected (NotDetected); Mycoplasma Pneumoniae, PCR Not Detected (NotDetected); Parainfluenza 1, PCR Not Detected (NotDetected); Parainfluenza 2, PCR Not Detected (NotDetected); Parainfluenza 3, PCR Not Detected (NotDetected); Parainfluenza 4, PCR Not Detected (NotDetected); Respiratory Syncytial Virus Not Detected (NotDetected); Rhinovirus/Enterovirus Not Detected (NotDetected)
[2024-09-17] MEDS: ACETAMINOPHEN 500MG TAB 1000 MG PO (23:25)
[2024-09-17] MEDS: IBUPROFEN 600 MG TABLET PO (23:25)
[2024-09-17 23:26] VITALS: BP 181/100; PULSE 110; RESP 20; TEMP 37.2
--- NOTE | 2024-09-18 01:16 | ED_ITS ---
Discharge Plan Disposition Patient Disposition: Home, Self-Care Condition: Good Prescriptions Prescriptions: No Action cetirizine 10 mg tablet 10 mg PO DAILY desvenlafaxine succinate [Pristiq] 50 mg tablet extended release 24 hr 50 mg PO DAILY Qty: 30 1RF levothyroxine 50 mcg tablet PO cyanocobalamin (vitamin B-12) 1,000 mcg tablet PO ciprofloxacin HCl [Cipro] 250 mg tablet 250 mg PO BID Qty: 14 0RF adapalene 0.3 % gel 1 applic topical HS Qty: 45 2RF ropinirole 1 mg tablet 1 mg PO DAILY norethindrone-e.estradiol-iron 1 mg-20 mcg (21)/75 mg (7) tablet 1 tab PO DAILY hydroxyzine HCl 25 mg tablet 25 mg PO BID Referrals Follow up/Referrals: Marycruz Mata APRN [Primary Care Provider] - See instructions Activity Restrictions/Add. Instructions Additional Instructions/Restrictions: You were evaluated in the ER and are appropriate for discharge at this time. Follow-up the results of the viral swab in the patient portal. Take Tylenol, ibuprofen as needed for pain or fevers, do not exceed the recommended dose on the bottle. Drink plenty of fluids, especially water or electrolyte drinks such as Gatorade/Pedialyte. Follow-up with your primary care doctor in a few days. Return to the ER with new, worsening, or otherwise concerning symptoms Clinical Impressions Clinical Impression: Pharyngitis, Cough, Congested nose Print Language Print Language: Hungarian Discharge ED Provider: Bruce Garcia Adult HPI General Chief complaint: PAIN Stated complaint: sore throat,drainage Time Seen by Provider: 09/17/24 23:05 Mode of Arrival: Ambulatory Source of Information: Patient Limitations: No Limitations Description of Symptoms (Recalled from ER Triage Doc. by RN): Pt states she has sore throat for several days History of Present Illness HPI narrative: 24-year-old female who I evaluated a few nights ago for depression and medication withdrawal symptoms presents to the ER with sore throat, cough. Patient reports her symptoms have been going on for several days but have worsened. She states she has not taken any medications for her symptoms. She denies any chest pain or difficulty breathing, no fevers documented, no nausea, vomiting, or diarrhea. Patient had negative COVID test earlier this week. Patient is here with family and they are concerned about strep. ROS otherwise negative Related Data Home Medications ?Medication ?Instructions ?Recorded ?Confirmed norethindrone 1 mg-ethinyl 1 tab PO DAILY control 03/27/23 09/15/24 estradiol 20 mcg (21)-iron 75 mg (7) tablet ropinirole 1 mg tablet 1 mg PO DAILY unk 03/27/23 09/15/24 cetirizine 10 mg tablet 10 mg PO DAILY 01/28/24 09/15/24 hydroxyzine HCl 25 mg tablet 25 mg PO BID Anxiety 01/28/24 09/15/24 cyanocobalamin (vitamin B-12) mcg PO 09/13/24 09/15/24 1,000 mcg tablet levothyroxine 50 mcg tablet mcg PO 09/13/24 09/15/24 Previous Rx's ?Medication ?Instructions ?Recorded desvenlafaxine succinate 50 mg 50 mg PO DAILY #30 tabs 08/23/24 tablet,extended release 24 hr (Pristiq) adapalene 0.3 % topical gel 1 applic topical HS #45 grams 09/14/24 ciprofloxacin HCl 250 mg tablet 250 mg PO BID #14 tabs 09/14/24 (Cipro) Allergies Allergy/AdvReac Type Severity Reaction Status Date / Time No Known Allergies Allergy Verified 09/15/24 14:22 [facility] Disclaimer: The information contained in this section may have been updated after the patient was seen, as this information can be updated by other users. Medical History (Updated 09/17/24 @ 23:22 by Bruce Garcia MD) Headache Anxiety UTI (urinary tract infection) Incontinence overflow, urine Vaginal discharge Vaginal odor Hair loss Recurrent major depression resistant to treatment History of concussion Family History Other Coronary artery disease Hypertension Stroke Social History Smoking Status: Never smoker quit status: considering quitting second hand exposure: No alcohol intake: never counseling given: No substance use type: denies use, marijuana and other details: she states that she used to smoke a clot of weed; made her too paranoid counseling given: No current occupational status: employed Travel in the last 8 weeks: None adopted: No caregiver/support person: No foster care: No household members: family housing: house lives independently: No marital status: single number of children: 0 number of grandchildren: 0 education level: other details: homeschooled; gave up on this; never finished; working on [employer] current occupation: works at [employer] Recent Travel: No sexually active: No caffeine: Yes physical activity: none cherelle/rastafari: None special cherelle needs: No working smoke detector in home: Yes fire extinguisher in home: Yes carbon monox detector in home: Yes firearms in home: No do you feel safe at home: Yes victim of physical abuse: No victim of emotional abuse: No victim of sexual abuse: No would you like helpful sources: No Other Medical History Have you received the Pneumonia Vaccine: No ROS Obtained: Yes Systems reviewed as appropriate & no additional complaints except as documented Positive ROS per HPI Physical Exam General General appearance: alert, in no apparent distress and obese Head Head exam: atraumatic and normocephalic Eye Eye exam: Present PERRL and EOMI ENT ENT exam: Present mucous membranes moist and other (Mildly erythematous posterior oropharynx, mild tonsillomegaly but no exudates, airway patent, no stridor) Neck Neck exam: Present normal inspection and full ROM; Absent lymphadenopathy Chest Chest inspection: Present symmetric chest wall rise Respiratory Respiratory exam: Present normal lung sounds bilaterally; Absent respiratory distress, wheezes or stridor Cardiovascular Cardiovascular exam: Present regular rate and normal rhythm Abdominal Exam Abdominal exam: Present soft; Absent distention or tenderness Extremities Exam Extremities exam: Present full ROM; Absent edema Neurological Exam Neurological exam: Present alert and oriented X3; Absent motor sensory deficit Psychiatric Psychiatric exam: Present normal affect, normal mood and other (Patient is not tearful or experiencing significant anxiety or depression today); Absent homicidal ideation or suicidal ideation Skin Skin exam: Present warm and dry Medical Decision Making Medical Records Medical records reviewed: Yes I reviewed the patient's medical records. Screening: Per USPSTF and CDC recommendations, given the prevalence of disease in our region, it is our hospital?s policy to screen for HIV and viral Hepatitis for all patients aged 18 and over and those with ongoing risk factors. MR Comment: Negative respiratory panel from 09/15, strep test has not been performed recently. Lyndon Inquiry Pt receiving controlled substance: No Vital Signs: 09/17/24 22:44 09/17/24 23:26 Temperature 98.7 F 98.9 F Temperature Source Oral Oral Pulse Rate 110 H Pulse Rate [Brachial] 112 H Respiratory Rate 20 20 Blood Pressure 181/100 H Blood Pressure [Right Arm] 181/100 H Blood Pressure Mean [Right Arm] 127 Blood Pressure Source Automatic Cuff Blood Pressure Source [Right Arm] Automatic Cuff Blood Pressure Position Sitting 02 Sat by Pulse Oximetry 99 Oxygen Delivery Method Room Air Room Air Lab Data Lab Results 09/17/24 22:45: Group A Strep Rapid Negative 09/17/24 23:15: Chlamy pneumoniae PCR Not detected, Adenovirus (PCR) Not detected, B. pertussis DNA (PCR) Not detected, Coronavirus OC43 (PCR) Not detected, Coronavirus HKU1 (PCR) Not detected, Coronavirus 229E (PCR) Not detected, SARS-CoV-2 (PCR) Not detected, Coronavirus NL63 (PCR) Not detected, Human Metapneumovir PCR Not detected, Influenza A (H1) PCR Not detected, Influ A (H1N1/09) PCR Not detected, Influenza A (H3) PCR Not detected, Influenza Type A (PCR) Not detected, Influenza Type B (PCR) Not detected, M. pneumoniae (PCR) Not detected, Parainfluenza 1 (PCR) Not detected, Parainfluenza 2 (PCR) Not detected, Parainfluenza 3 (PCR) Not detected, Parainfluenza 4 (PCR) Not detected, RSV (PCR) Not detected, Entero/Rhino (PCR) Not detected Orders (Tests/Meds): ED MEDICATIONS Discontinued Medications Generic Name Dose Route Start Last Admin Trade Name Freq PRN Reason Stop Dose Admin Acetaminophen 1,000 mg 09/17/24 23:20 09/17/24 23:25 Acetaminophen 500mg Tab PO 09/17/24 23:21 1,000 mg ONCE ONE Administration Ibuprofen 600 mg 09/17/24 23:20 09/17/24 23:25 Ibuprofen 600 Mg Tablet PO 09/17/24 23:21 600 mg ONCE ONE Administration ORDERS Category Date Time Status Full Resp Panel w/COVID ([facility]) Routine Lab 09/17/24 23:15 Completed Strep Scrn Group A (Rapid) Stat Lab 09/17/24 22:45 Completed Strep Screen Confirmation Stat Micro 09/17/24 22:45 Received Medical Decision Narrative: In summary, this 24-year-old female with comorbidities as described in HPI presents to the emergency department today with concerns of sore throat, cough. On initial evaluation patient is hemodynamically stable, afebrile mild posterior oropharyngeal erythema with slight tonsillomegaly but no exudates, no lymphadenopathy, presence of cough decreases suspicion for strep however this is still on my differential. Differential diagnosis includes but is not limited to strep, viral syndrome, other cause of pharyngitis. Based on these concerns, I ordered strep and respiratory panel since patient has had change in symptoms since the last time it was performed. Strep test negative on my review of labs. She received Tylenol and ibuprofen in the ER for symptomatic management. She was encouraged to intake plenty of fl uids, follow-up closely with her primary care, and follow-up the results of her respiratory panel in the patient portal. I have extremely low suspicion for any acute dangerous, or life-threatening pathology. She overall appears well and her laboratory workup from 1 day ago was also very reassuring. Patient was given instructions on symptomatic management, follow up instructions, and return precautions for the emergency department. Patient indicated understanding and was discharged in stable condition. I reviewed finalization of respiratory panel after patient was discharged and this was completely negative for all analytes. Critical Care Critical Care Time Critical Care Time: No
== END 2024-09-17 23:32 | disposition home or self-care (01) ==
PROVIDERS: Emergency Medicine; Emergency Provider Emergency Medicine; PCP Family Medicine
DX: J02.9 Acute pharyngitis, unspecified (principal); R05.9 Cough, unspecified; R09.81 Nasal congestion
CPT/HCPCS: 87265; 87430; 87486; 87581; 87632; 87635; 99283

== ENCOUNTER 2024-09-29 09:58 | Outpatient (CLI) | payer OTHER, SELFPAY ==
--- NOTE | 2024-09-29 10:02 | XR_ITS ---
FINAL REPORT CLINICAL HISTORY: UTI COMPARISON: None FINDINGS: SINGLE VIEW ABDOMEN A single view of the abdomen was obtained. There is a nonobstructive bowel gas pattern. There are no abnormally dilated loops of small bowel. No abnormal calcifications are identified. IMPRESSION: No evidence of kidney stones. Reviewed, Interpreted and Dictated by Thaddeus Bailey MD Transcribed by Padmini Mitchell Authenticated and [facility]
--- NOTE | 2024-09-29 10:02 | US_ITS ---
FINAL REPORT TECHNIQUE: Ultrasound images of the kidneys and bladder were obtained. CLINICAL HISTORY: .urinary urgency-- uti FINDINGS: The right kidney measures 11.3 cm in length. It is normal in echogenicity. There is no hydronephrosis. The left kidney measures 11.9 cm in length. It is normal in echogenicity. There is no hydronephrosis. The spleen is unremarkable. IMPRESSION: Unremarkable renal ultrasound. Reviewed, Interpreted and Dictated by Thaddeus Bailey MD Transcribed by Rianna Conteh Authenticated and [facility]
--- NOTE | 2024-09-29 10:02 | US_ITS ---
FINAL REPORT CLINICAL HISTORY: UTI COMPARISON: None FINDINGS: BLADDER ULTRASOUND: Ultrasound examination of the bladder was done both pre and post void. The bladder volume is 102 cc. There is no appreciable postvoid residual. Ureteral jets are noted. No significant bladder wall thickening is identified. IMPRESSION: No appreciable postvoid residual. Reviewed, Interpreted and Dictated by Thaddeus Bailey MD Transcribed by Mer Dejesus Authenticated and [facility]
== END 2024-09-29 23:59 | disposition home or self-care (01) ==
LOC: RAD 09:59
PROVIDERS: PCP Family Medicine; Visit Provider Urology
DX: N39.0 Urinary tract infection, site not specified (principal); R32 Unspecified urinary incontinence
CPT/HCPCS: 74018; 76770; 76857

== ENCOUNTER 2024-12-20 13:30 | Outpatient (CLI) | payer OTHER, SELFPAY ==
[2024-12-20 18:27] LABS: Coronavirus 19, PCR Not Detected (NotDetected); Influenza A, PCR Not Detected (NotDetected); Influenza B, PCR Not Detected (NotDetected)
== END 2024-12-20 23:59 | disposition home or self-care (01) ==
LOC: LAB.DROPOF 12-21 09:19
PROVIDERS: PCP Family Medicine; Visit Provider Family Medicine
DX: J02.9 Acute pharyngitis, unspecified (principal); J02.0 Streptococcal pharyngitis; R09.81 Nasal congestion; R05.9 Cough, unspecified; R68.89 Other general symptoms and signs
CPT/HCPCS: 87636

== ENCOUNTER 2024-12-28 16:44 | Outpatient (CLI) | payer OTHER, SELFPAY | END 2024-12-28 23:59 | disposition home or self-care (01) | LOC: LAB.DROPOF 12-29 12:01 | PROVIDERS: PCP Student in an Organized Health Care Education/Training Program; Visit Provider Student in an Organized Health Care Education/Training Program | DX: J02.9 Acute pharyngitis, unspecified (principal) | CPT/HCPCS: 87070; 87186 ==

== ENCOUNTER 2025-04-15 08:42 | Outpatient (CLI) | payer OTHER, SELFPAY ==
--- OUTSIDE RECORDS SUMMARY | 2015-08-04 10:00 | XMS_ITS | Encounter Summary ---
Author Organization [facility] Address [address] [place] [address] Care Team Providers Care Unit Secy Name Role Phone Unavailable Primary Care Provider Unavailabl e Encounter Details Date Type Department Care Team (Late st Contact Info) Description 08/04/2015 10:00 AM EDT Hospital Encounter [facility] [address] [place] [address] Shadi Mullen PTA Grau, Gregory, MD [address] [place] [id number] Social History Tobacco Use Types Packs/Day Years Used Date Smoking Tobacco: Every Day E-Cigarettes Smokeless Tobacco: Never Alcohol Use Standard Drinks/Week Comments Never 0 (1 standard drink = 0.6 oz pur e alcohol) AUDIT-C Answer Date Recorded Frequency of Alcohol Consumption Never 02/05/2019 Average Number of Drinks Not on file 019 Frequency of Binge Drinking Not on file 01/09 Comments No Sex and Gender Information Value Date Recorded Sex Assigned at Not on file Legal Sex Female 4:51 AM EST Gender Identity Not on file Sexual Orientation Not on file documented as of this encounter Functional Status documented as of this encounter Plan of Treatment Not on file documented as of this encounter Visit Diagnoses Not on filedocumented in this encounter
--- OUTSIDE RECORDS SUMMARY | 2015-08-15 11:00 | XMS_ITS | Encounter Summary ---
Author Organization [facility] Address [address] [place] [address] Care Team Providers Care Making Line Worker Name Role Phone Unavailable Primary Care Provider Unavailabl e Encounter Details Date Type Department Care Team (Late st Contact Info) Description 08/15/2015 11:00 AM EDT Hospital Encounter [facility] [address] [place] [address] Gina Whitfield PTA Grau, Gregory, MD [address] [place] [phone] Social History Tobacco Use Types Packs/Day [...]
--- OUTSIDE RECORDS SUMMARY | 2015-08-17 11:00 | XMS_ITS | Encounter Summary ---
Author Organization [facility] Address [address] [place] [address] Care Team Providers Care Director Cost Name Role Phone Unavailable Primary Care Provider Unavailabl e Encounter Details Date Type Department Care Team (Late st Contact Info) Description 08/17/2015 11:00 AM EDT Hospital Encounter [facility] [address] [place] [address] Shadi Mullen PTA Grau, Gregory, MD [address] [place] [id number] Social History Tobacco Use Types Packs/Day [...]
--- OUTSIDE RECORDS SUMMARY | 2015-09-25 12:00 | XMS_ITS | Encounter Summary ---
Author Organization [facility] Address [address] [place] [address] Care Team Providers Care International First Officer Name Role Phone Unavailable Primary Care Provider Unavailabl e Encounter Details Date Type Department Care Team (Late st Contact Info) Description 09/25/2015 11:00 AM EST Hospital Encounter [facility] [address] [place] [address] Shadi Mullen PTA Grau, Gregory, MD [address] [place] [phone] Social History Tobacco Use Types Packs/Day [...]
--- OUTSIDE RECORDS SUMMARY | 2015-10-12 14:30 | XMS_ITS | Encounter Summary ---
Author Organization [facility] Address [address] [place] [address] Care Team Providers Care Road Engineer Name Role Phone Unavailable Primary Care Provider Unavailabl e Encounter Details Date Type Department Care Team (Late st Contact Info) Description 10/12/2015 1:30 PM EST Hospital Encounter [facility] [address] [place] [address] Shadi Mullen PTA Grau, Gregory, MD [address] [place] [phone] Social History Tobacco Use Types Packs/Day [...]
[2025-04-15 17:46] LABS: Basophils # 0.1 K/mm3 (0-0.2); Basophils % 0.6 % (0.1-2.0); Eosinophils # 0.2 Kmm3 (0.0-0.4); Eosinophils % 2.3 % (0.1-12.0); Hematocrit 41.5 % (37.0-47.0); Hemoglobin 13.8 g/dL (12.2-16.2); Immature Granulocytes # 0.04 10^3uL; Immature Granulocytes % 0.4 %; Lymphocytes # 3.2 K/mm3 (0.7-4.5); Lymphocytes % 33.4 % (10-50); Mean Corpuscular HGB Conc 33.3 g/dL (31.8-35.4); Mean Corpuscular Hemoglobin 30.1 pg (27.0-31.2); Mean Corpuscular Volume 90.4 fl (81-99); Mean Platelet Volume 9.6 fl (7.4-10.4); Monocytes # 0.6 K/mm3 (0.1-1.0); Monocytes % 5.7 % (1.7-9.3); Neutrophils # 5.5 K/mm3 (1.8-7.8); Neutrophils % 57.6 % (37.0-80.0); Nucleated Red Blood Cells # 0 10^3/uL; Nucleated Red Blood Cells % 0 %; Platelet Count 422 K/mm3 (142-424); Red Blood Count 4.59 M/mm3 (4.20-5.40); Red Cell Distribution Width 12.6 % (11.5-17.5); Red Cell Distribution Width-SD 41.1 fL; White Blood Count 9.6 K/mm3 (4.8-10.8)
[2025-04-15 18:32] LABS: Alanine Aminotransferase 36 U/L (12-78); Albumin Level 3.9 g/dl (3.5-5.0); Albumin/Globulin Ratio 1.3 (1.1-1.8); Alkaline Phosphatase 70 U/L (38-126); Anion Gap 10.2 mEq/L (5-15); Aspartate Amino Transferase 35 U/L (14-36); Bilirubin,Total 0.5 mg/dl (0.2-1.3); Blood Urea Nitrogen 13 mg/dl (7-17); Calcium 8.9 mg/dl (8.4-10.2); Carbon Dioxide 24 mmol/L (22.0-30.0); Chloride 106 mmol/L (98-107); Estimated Glomerular Filt Rate 78 ml/min (>60); GFR (African American) 95 ML/MIN (>60); Globulin 2.9 g/dL (1.3-3.2); Glucose 85 mg/dl (74-100); Potassium 4.2 mmoL/L (3.5-5.1); Sodium 136 mmol/L (136-145); Total Protein,Serum 6.8 g/dl (6.3-8.2)
[2025-04-15 18:45] LABS: Free Thyroxine Index 2.8 ug/dL (5.93-13.13); T4 (Thyroxine) 13.2 ug/dl (5.53-11.0); Triiodothryronine (T3) Uptake 21 % (23.5-40.5)
[2025-04-15 18:57] LABS: Thyroid Stimulating Hormone 3.21 uIU/mL (0.465-4.68)
--- OUTSIDE RECORDS SUMMARY | 2025-04-18 08:45 | XMS_ITS | Encounter Summary ---
Author Organization Healthcare Address [address] [place] [address] Care Team Providers Care Environmental Professional Name Role Phone Unavailable Primary Care Provider Unavailabl e Reason for Visit * Reason Comments Med Refill Encounter Details Date Type Department Care Team ([facility] Contact Info) Description 08/14/2023 Refill Medical Office Building Obstetrics and Gynecology [address], [address] [place] [address] Melani Espinosa, TEACHERS' AIDE [address] [place] [address] Encounter for initial prescription of contraceptive pills Social History Tobacco Use Types Packs/Day Years Used Date Smoking Tobacco: Every Day Pipe Smokeless Tobacco: Never Alcohol Use Standard Drinks/Week Comments No 0 (1 standard drink = 0.6 oz pur e alcohol) Comments No Sex and Gender Information Value Date Recorded Sex Assigned at Female 01/13/2023 3:35 PM EST Legal Sex Female 7:14 PM EDT Gender Identity Female 01/13/2023 3:35 PM EST Sexual Orientation Bisexual 01/13/2023 3: 35 PM EST documented as of this encounter Plan of Treatment Not on file documented as of this encounter Visit Diagnoses Diagnosis Encounter for initial prescription of contraceptive pills documented in this encounter Additional Health Concerns Assessment Noted Time A fall risk assessment has been complete d for the patient 02/14/2022 2:18 PM EDT documented as of this encounter
--- OUTSIDE RECORDS SUMMARY | 2025-04-18 08:45 | XMS_ITS | Clinical Summary ---
Author Organization Healthcare Address [address] [place] [address] Care Team Providers Care Application Packaging Specialist Name Role Phone Unavailable Primary Care Provider Unavailabl e Allergies No known active allergies Medications escitalopram (Lexapro) 20 MG tablet 9 Active cetirizine (ZyrTEC) 10 MG tablet 2 Active busPIRone (Buspar) 10 MG tablet 2 Active fluticasone (Flonase) 50 MCG/ACT nasal spray 2 Active MONTELUKAST SODIUM PO 9 Active rOPINIRole (Requip) 1 MG tablet 2 Active traZODone (Desyrel) 50 MG tablet 1 Active hydrOXYzine HCl (Atarax) 25 MG tablet 2 Active cyclobenzaprine (Flexeril) 5 MG tablet 2 Active norethindrone-ethi nyl estradiol (11/29) 1-20 MG-MCG tabletIndications: Encounter for initial prescription of contraceptive pills TAKE ONE TABLET BY MOUTH ONCE A DAY 28 tablet 3 Active Active Problems No known active problems Family History Medical History Relation Name Comments Heart disease Father Hypertension Father Relation Name Status Comments Father Social History Tobacco Use Types Packs/Day Years [...] Orientation Bisexual 01/13/2023 3: 35 PM EST Last Filed Vital Signs Vital Sign Reading Time Taken Comments Blood Pressure 121/77 02/14/2022 2:16 PM EDT Pulse - - Temperature - - Respiratory Rate - - Oxygen Saturation - - Inhaled Oxygen Concentration - - Weight 128 kg (282 lb 3 oz) 03/05/2022 11:28 AM EDT Height 165.1 cm (5' 5 ) 03/05/2022 11:28 AM EDT Body Mass Index 46.96 03/05/2022 11:28 AM EDT Plan of Treatment Health Maintenance Due Date Last Done Comments [facility]-Depression Screening 2002 [facility]-/Child/Adol SDOH Screenings 2002 HPV Vaccines (1 - 3-dose series) 2017 [facility]-Hepatitis A Vaccines (2 of 2 - 2-dose series) 02/18/2020 08/19/2019 [facility]- SDOH Screenings 2020 [facility]-Adult SDOH Screenings 2020 [facility]-Pap Smear 2023 [id number] Vaccine ( season) 2024 07/27/2021, 06/25/2021 [facility]-Influenza Vaccine (Season Ended) 2025 09/12/2015, 08/26/2014, 08/24/2013, Additional history exists [facility]-DTaP,Tdap,and Td Vaccines (8 - Td or Tdap) 06/13/2031 06/13/2021, 05/24/2015, 06/16/2006, Additional history exists [facility]-Zoster Vaccines (1 of 2) 2052 05/24/2015, 08/16/2003 [facility]-Hepatitis B Vaccines Completed 003, 2002, 2002 [facility]-HIB Vaccines Completed 11/25/2003, 04/2003, 2002, Additional history exists [facility]-IPV Vaccines Completed 11/25/2003, 04/2003, 2002, Additional history exists [facility]-Varicella Vaccines Completed 05/24/2015, 2002 [facility]-Pneumococcal Vaccine: Pediatrics (0 to 5 Years) and At-Risk Patients (6 to 49 Years) Aged Out No longer eligible based on patient's age to complete this topic [facility]-Rotavirus Vaccines Aged Out No lo nger eligible based on patient's age to complete this topic Insurance [facility] [place] [id number] [employer]
--- OUTSIDE RECORDS SUMMARY | 2025-04-18 08:45 | XMS_ITS | Encounter Summary ---
Author Organization [facility] Address [address] [place] [address] Care Team Providers Care Twister Operator Name Role Phone Roseanne Solis PA-C Primary Care Provider [phone] Reason for Referral * Imaging (Routine) - Closed Specialty Diagnoses / Procedures Referred By New queen Referred To Contact Radiology Diagnoses Elevated liver enzymes Procedures US GALLBLADDER RUQ Roseanne Solis PA-C [address] [place] [address] Phone: tel: fax: Referral ID Status Reason Start Date Expiration Date Visits Re quested Visits Authorized [id number] Closed 09/10/2021 09/10/2022 1 1 Encounter Details Date Type Department Care Team (Latest Contact Info) Description 09/10/2021 Transcribe Orders L PRE ACCESS [address] [place] [address] Roseanne Solis PA-C [address] [place] [address] Elevated liver enzymes (Primary Dx) Social History Tobacco Use Types Packs/Day Years [...] on file documented as of this encounter Plan of Treatment Not on file documented as of this encounter Results * US GALLBLADDER RUQ (09/18/2021 7:58 AM EST) Anatomical Region Laterality Modality Abdomen Ultrasound 09/18/2021 10:1 1 AM EST Impressions 09/18/2021 10:14 AM EST Echogenic hepatic parenchyma, compatible with diffuse hepatocellular disease to include steatosis. No acute sonographic abnormality of the abdomen. Narrative 09/18/2021 10:14 AM EST EXAM: US GALLBLADDER RUQ INDICATION: Elevated liver enzymes COMPARISON: None TECHNIQUE: Grayscale imaging was performed for evaluation of the liver, gallbladder, common bile duct, pancreas, and right kidney; with limited grayscale and color Doppler evaluation of the upper abdominal aorta and inferior vena cava. FINDINGS: The liver is increased in echogenicity and homogeneous in echotexture. There are no apparent focal hepatic masses. There is no intrahepatic biliary ductal dilation. The common bile duct is normal in caliber, measuring approximately 5 mm. The gallbladder is normal. Sonographic Lu's sign reported negative. No free fluid is seen in the abdomen. The pancreas is incompletely visualized; however, the visible portions appear normal. The spleen and left kidney were not imaged. The right kidney measures 10.8 cm in length with no evidence of hydronephrosis. The visualized portions of the aorta and IVC are normal in caliber and demonstrate internal flow. Procedure Note Yuval Reed MD - 09/18/2021 EXAM: US GALLBLADDER RUQ INDICATION: Elevated liver enzymes COMPARISON: None TECHNIQUE: Grayscale imaging was performed for evaluation of the liver,gallbladder, common bile duct, pancreas, and right kidney; with limitedgrayscale and color Doppler evaluation of the upper abdominal aorta andinferior vena cava. FINDINGS: The liver is increased in echogenicity and homogeneous in echotexture.There are no apparent focal hepatic masses. There is no intrahepaticbiliary ductal dilation. The common bile duct is normal in caliber,measuring approximately 5 mm. The gallbladder is normal. Sonographic Lu's sign reported negative. No free fluid is seen in the abdomen. The pancreas is incompletely visualized; however, the visible portionsappear normal. The spleen and left kidney were not imaged. The right kidney measures 10.8cm in length with no evidence of hydronephrosis. The visualized portions of the aorta and IVC are normal in caliber anddemonstrate internal flow. IMPRESSION: Echogenic hepatic parenchyma, compatible with diffuse hepatocellulardisease to include steatosis. No acute sonographic abnormality of the abdomen. us Roseanne Solis PA-C IMG US ORDERABLES Final Re sult documented in this encounter Visit Diagnoses Diagnosis Elevated liver enzymes- Primary Nonspecific elevation of levels of transaminase or lactic acid dehydrogenase (LDH) Elevated liver enzymes Nonspecific elevation of levels of transaminase or lactic acid dehydrogenase (LDH) documented in this encounter Care Teams Twister Operator Relationship Specialty Start Date End Date Roseanne Solis PA-C [address] [place] [address] PCP - General Physician Edi Manager 09/18/21 documented as of this encounter
--- OUTSIDE RECORDS SUMMARY | 2025-04-18 08:45 | XMS_ITS | Data Portability ---
Author Organization [place] - [facility] ADMIN Address [address] [place] [address] Assessment Encounter Date Assessment Date Assessment LastModified by Organization Details LastModified Time 10/24/2023 10/24/2023 Diagnosis Influenza Patient advised to rest, drink clear fluids, use a humidifier, gargle with warm salt water, Tylenol/Motri n for fever or pain. OTC cough syrup as needed Follow up with PCP if symptoms worsen or do not resolve [email or web address] Not available 10/24/2023 09:27:21 Plan of Treatment Reminders Order Date Submit Date Provider Last Modified By Organization Details Last Modified Time Details Appointments None recorded. Lab rapid strep group A, throat 2022 023 [email or web address] [facility], [address] [facility], [address] [facility], [place], [address], 3 09:26:48 influenza virus A + B + SARS-CoV- 2 (COVID19) Ag panel, rapid IA, upper respirato ry specimen 2022 023 [email or web address] [facility], [address] [facility], [address], [place], [address], 3 09:26:47 rapid strep group A, throat 2021 022 [facility], [address] [facility], [address], [place], [address], 2 14:29:30 Referral podiatris t referral 2022 023 [email or web address] [facility] [place] [facility], [address] [facility], [address], [place], [address], 3 15:58:14 Procedures cerumen removal using irrigatio n (PROC) 2022 023 Not available 14:38:14 Surgeries None recorded. Imaging None recorded. Medication Orders Tamiflu 75 mg capsule 2022 023 [facility], [address] [place], [address], 3 09:27:28 cephalexi n 500 mg capsule 2022 023 [facility], [address] [place] [address], [place], [place], [id number], 3 13:49:10 amoxicill in 500 mg tablet 2022 023 [facility], [address] [place] [address], [place], [place], [id number], 3 09:06:30 Stahist AD 25 mg-60 mg tablet [email or web address] [facility], [address] [place] [address], [id number], 3 16:09:07 ofloxacin 0.3 % ear drops 2022 023 [facility], [address] [place] [address], [id number], 3 15:45:12 amoxicill in 500 mg tablet [address] [facility] [address] [facility], [address] [place] [address], [id number], 3 13:38:17 Patient TargetsNo targets recorded. Patient Instructions Encounter Date Encounter Id Patient Instructions Last Modified By Organization Details Last Modified Time 05/07/2023 [id number] middle ear fluid : care instructions Not available 05/07/2023 16:10:28 ear infection (otitis media): care instructions Not available 05/07/2023 16:10:28 Reason for Referral Scientific Manager Referral for Ingr owing nail of toe of right foot Referring Physician: Flex Carrion, Family Medicine, Encounter Date: 10/04/2023 Results Created Date Observation Date Name Description Value Unit Range Abnormal Flag Note LastModifiedBy Organization Detail LastModifiedTime 10/25/2010/25/2022 rapid strep group A, throa t Strep positi ve Not Available [facility] [address], [place], [address], 10/25/2022 13:33:39 10/24/20 23 10/24/2023 influ guillermina virus A + B + SARS- CoV-2 (COVI D19) Ag panel , rapid IA, upper respi rator y speci men FLU A negati ve Not Available [facility] [address], [place], [address], 10/24/2023 09:05:01 10/24/20 23 10/24/2023 influ guillermina virus A + B + SARS- CoV-2 (COVI D19) Ag panel , rapid IA, upper respi rator y speci men FLU B positi ve Not Available [facility] [address], [place], [address], 10/24/2023 09:05:01 10/24/20 23 10/24/2023 influ guillermina virus A + B + SARS- CoV-2 (COVI D19) Ag panel , rapid IA, upper respi rator y speci men SARS COV + SARS OV 2 negati ve Not Available [facility] [address], [place], [address], 10/24/2023 09:05:01 10/24/20 23 10/24/2023 rapid strep group A, throa t Strep negati ve Not Available [facility] [address] [facility] [address], [place], [address], 10/24/2023 09:00:01 Result Notes None recorded. Medical Equipment None Reported. Allergies No known drug allergies Medications Name Sig Start Date Stop Date Status Note LastModified by Organization Details LastModified Time cyclobenzap rine 10 mg tablet active Not Available Not Available Not Available amoxicillin 500 mg capsule 10/04 completed Not Available Not Available Not Available ropinirole 1 mg tablet active Not Available Not Available Not Available cetirizine 10 mg tablet active Not Available Not Available Not Available metronidazo le 500 mg tablet active Not Available Not Available Not Available norethindro ne 1 mg-ethinyl estradiol 20 mcg (21)-iron 75 mg (7) tablet active Not Available Not Available Not Available amoxicillin 500 mg tablet Take 1 tablet twice a day by oral route with meals for 10 days. 10/04 completed Not Available Not Available Not Available acyclovir 800 mg tablet 08/28 completed Not Available Not Available Not Available ofloxacin 0.3 % ear drops INSTILL 10 DROPS INTO AFFECTED EAR(S) BY OTIC ROUTE ONCE DAILY active Not Available Not Available No t Available cephalexin 500 mg capsule Take 1 capsule every 6 hours by oral route for 10 days. active Not Available Not Available No t Available oseltamivir 75 mg capsule Take 1 capsule twice a day by oral route for 5 days. active Not Available Not Available No t Available buspirone 10 mg tablet active Not Available Not Available Not Available hydrocortis one 2.5 % topical cream 08/28 completed Not Available Not Available Not Available hydroxyzine HCl 25 mg tablet active Not Available Not Available Not Available norethindro ne acetate 1 mg-ethinyl estradiol 20 mcg tablet active Not Available Not Available Not Available methylpredn isolone 4 mg tablets in a dose pack 08/28 completed Not Available Not Available Not Available cefdinir 300 mg capsule active Not Available Not Available Not Available fluticasone propionate 50 mcg/actuati on nasal spray,suspe nsion active Not Available Not Available Not Available escitalopra m 20 mg tablet active Not Available Not Available Not Available aripiprazol e 10 mg tablet active Not Available Not Available Not Available atomoxetine 40 mg capsule active Not Available Not Available Not Available cyclobenzap rine 5 mg tablet active Not Available Not Available Not Available aripiprazol e 5 mg tablet active Not Available Not Available Not Available Stahist AD 25 mg-60 mg tablet Take 1 tablet every 8 hours by oral route as needed for 5 days. 2022 active Not Available Not Available Not Avai lable Vraylar 1.5 mg capsule active Not Available Not Available N ot Available Sodium Fluoride 5000 Plus 1.1 % dental cream active Not Available Not Available Not Available Vitals Date Recorded Body height Body mass index (BMI) Body mass index (BMI) Percentile per age and sex Body weight Body temperature Provider Name and Address Organization Details Last Updated DateTime 05/07/2023 165.1 cm 48.9 kg/m2 99 % 696990. 16 g 97.9 [degF] WILMAR BURRIS [facility] [place] 3 15:37:20 Date Recorded Body height Body mass index (BMI) Body mass index (BMI) Percentile per age and sex Body weight Oxygen saturation Oxygen saturation in Arterial blood by Pulse oximetry Body temperature Heart rate Systolic blood pressure Diastolic blood pressure Provider Name and Address Organization Details Last Updated DateTime 3 165.1 cm 48.6 kg/m2 99 % 076416. 97 g 98 % 98 % 98.1 [degF] 106 /min 117 mm[Hg] 76 mm[Hg] Karina Taylor [facility] [place] 3 15:14:26 Date Recorded Body height Body mass index (BMI) Body weight Body temperature Oxygen saturation Oxygen saturation in Arterial blood by Pulse oximetry Heart rate Heart rate Systolic blood pressure Diastolic blood pressure Provider Name and Address Organization Details Last Updated DateTime 3 165.1 cm 49.1 kg/m2 022226. 75 g 97.2 [degF] 97 % 97 % 100 /min 100 /min 119 mm[Hg] 76 mm[Hg] Ora Naylor [facility] [place] 3 13:37:24 Date Recorded Body height Body mass index (BMI) Body weight Body temperature Oxygen saturation Oxygen saturation in Arterial blood by Pulse oximetry Heart rate Heart rate Systolic blood pressure Diastolic blood pressure Provider Name and Address Organization Details Last Updated DateTime 3 165.1 cm 49.5 kg/m2 920747. 33 g 97.9 [degF] 98 % 98 % 89 /min 100 /min 132 mm[Hg] 77 mm[Hg] Reanna Cuevas [facility] [place] 3 08:59:50 Date Recorded Body height Body mass index (BMI) Body mass index (BMI) Percentile per age and sex Body weight Body temperature Oxygen saturation Oxygen saturation in Arterial blood by Pulse oximetry Heart rate Provider Name and Address Organization Details Last Updated DateTime 2 165.1 cm 49.4 kg/m2 99 % 332216. 63 g 98.1 [degF] 96 % 96 % 105 /min Gay Fan [facility] [place] 2 13:33:32 Social History None recorded. Functional Status Question Answer Note LastModified by Endovention ion Details LastModified Time Do you or have you ever used any other forms of tobacco or nicotine? [place] [address] Information not available 10/04/2023 Do you or have you ever used smokeless tobacco? Never used smokeless tobacco [place] [address] Information not available 10/04/2023 Do you or have you ever used e-cigarettes or vape? Current user of electronic cigarettes [place] [address] Information not available 10/04/2023 Mental Status None recorded. Family History Nothing Reported. Medical History Condition Response Coronary Artery Disease N Gout N Other N None N Kidney Stones N Blood Diseases N Hyperthyroidism N Breast Cancer N Blood Transfusion N Hypothyroidism N Lung Disease N Depression N COPD N Developmental or Behavioral Disorders N Defects or Inherited Disease N Breast Problem N Difficulty Swallowing N Anesthesia Complications N Anxiety Disorder N Meniere's disease N Muscle, Joint, or Bone Problems N Vision or Eye Problems N Arthritis N Infertility N Polyps N Cancer N Stroke N Varicosities N Endometriosis N Bladder or Kidney Problems N High Cholesterol N Liver Disease N Headaches N Fibromyalgia N Kidney Disease N Allergies/Hayfever N Heart Problems N Ear or Hearing Problems N Hospitalizations N Thyroid Problems N GI Problems N ADD/ADHD N Eating Disorder N Skin Problems N Anemia N Constipation N Mental Illness N Diabetes N Ovarian Cancer N Bedwetting N Seizures/Epilepsy N Tuberculosis N Eczema N Abuse/Domestic Violence N Diverticulitis N Asthma N Reflux/GERD N Jaundice N Hepatitis N Heart Disease N Pulmonary Embolism N Chronic Ear Infections N Pre-Eclampsia N Hypertension N Chicken Pox N Autism Spectrum Disorder (ASD) N Osteoporosis N Thrombophilias N Gynecological History Statement/Question Response Menses Monthly Y Current Control Method BCPs Date of LMP 08/20/2023 Obstetrics History GPAL:G 0 P 0 0 0 0 Immunizations Vaccine Type Date Status Note Provider Nam e and Address Organization Details Recorded Time Tdap 5 completed Susan Cowherd null, [place] - [facility] [place] 08/28/2022 16:00:24 IPV 3 completed Susan Cowher[place] null[place] [facility] [place] [facility] [place] 08/28/2022 16:00:24 Hib (PRP-T) 4 completed Susan [place] [facility] [place] [facility] [place] 08/28/2022 16:00:24 DTaP 4 completed Susan [place] [facility] [place] [facility] [place] 08/28/2022 16:00:24 DTaP, 5 pertussis antigens 3 completed Susan [place] null[place] [facility] [place] 08/28/2022 16:00:24 Hep A, ped/adol, 2 dose 9 completed Susan [place] null[place] [facility] [place] 08/28/2022 16:00:24 Influenza, split virus, trivalent, preservative 4 completed Susan [place] null[place] [facility] [place] [facility] [place] 08/28/2022 16:00:24 Influenza, live, trivalent, intranasal 1 completed Susan [place] [facility] [place] [facility] [place] 08/28/2022 16:00:24 DTaP 2 completed [place] [facility] [place] [facility] [place] 08/28/2022 16:00:24 DTaP, 5 pertussis antigens 6 completed Susan [place] [facility] [place] [facility] [place] 08/28/2022 16:00:24 IPV 2 completed Susan [place] [facility] [place] [facility] [place] 08/28/2022 16:00:24 Hep B, adolescent or pediatric 2 completed Susan [place] [facility] [place] [facility] [place] 08/28/2022 16:00:24 Influenza, live, quadrivalent, intranasal 3 completed Susan [place] [facility] [place] [facility] [place] 08/28/2022 16:00:24 Hep B, adolescent or pediatric 3 completed Susan [place] [facility] [place] [facility] [place] 08/28/2022 16:00:24 IPV 2 completed Susan [place] [facility] [place] [facility] [place] 08/28/2022 16:00:24 DTaP 6 completed [place] [facility] [place] [facility] [place] 08/28/2022 16:00:24 DTaP 3 completed [place] [facility] [place] [facility] [place] 08/28/2022 16:00:24 Influenza, live, quadrivalent, intranasal 4 completed Susan [place] [facility] [place] [facility] [place] 08/28/2022 16:00:24 Influenza, live, quadrivalent, intranasal 5 completed Susan [place] [facility] [place] [facility] [place] 08/28/2022 16:00:24 COVID-19, mRNA, LNP-S, PF, 100 mcg/0.5mL dose or 50 mcg/0.25mL dose 1 completed Susan [place] [facility] [place] [facility] [place] 08/28/2022 16:00:24 meningococcal MCV4, unspecified formulation 5 completed Susan [place] [facility] [place] [facility] [place] 08/28/2022 16:00:24 Influenza, live, trivalent, intranasal 3 completed Susan [place] [facility] [place] [facility] [place] 08/28/2022 16:00:24 Influenza, split virus, trivalent, preservative 3 completed Susan [place] [facility] [place] [facility] [place] 08/28/2022 16:00:24 Influenza, live, trivalent, intranasal 2 completed Susan [place] [facility] [place] [facility] [place] 08/28/2022 16:00:24 IPV 4 completed Susan [place] [facility] [place] [facility] [place] 08/28/2022 16:00:24 Meningococcal MCV4O 5 completed Susan [place] [facility] [place] [facility] [place] 08/28/2022 16:00:24 DTaP 2 completed [place] [facility] [place] [facility] [place] 08/28/2022 16:00:24 Meningococcal MCV4O 9 completed Susan [place] [facility] [place] [facility] [place] 08/28/2022 16:00:24 varicella 3 completed [place] [facility] [place] [facility] [place] 08/28/2022 16:00:24 meningococcal MCV4P 5 completed [place] [facility] [place] [facility] [place] 08/28/2022 16:00:24 Influenza, split virus, trivalent, preservative 2 completed [place] [facility] [place] [facility] [place] 08/28/2022 16:00:24 varicella 5 completed [place] [facility] [place] [facility] [place] 08/28/2022 16:00:24 Tdap 1 completed [place] [facility] [place] [facility] [place] 08/28/2022 16:00:24 Hib (PRP-T) 2 completed Suasn [place]d [place] [facility] [place] [facility] [place] 08/28/2022 16:00:24 Influenza, split virus, trivalent, preservative 5 completed Susan [place] [facility] [place] [facility] [place] 08/28/2022 16:00:24 COVID-19, mRNA, LNP-S, PF, 100 mcg/0.5mL dose or 50 mcg/0.25mL dose 1 completed Susan [place] [facility] [place] [facility] [place] 08/28/2022 16:00:24 MMR 3 completed [place] [facility] [place] [facility] [place] 08/28/2022 16:00:24 MMR 6 completed [place] [facility] [place] [facility] [place] 08/28/2022 16:00:24 Influenza, live, trivalent, intranasal 0 completed [place] [facility] [place] [facility] [place] 08/28/2022 16:00:24 Hib (PRP-T) 3 completed [place] [facility] [place] [facility] [place] 08/28/2022 16:00:24 Hep B, adolescent or pediatric 2 completed [place] [facility] [place] [facility] [place] 08/28/2022 16:00:24 Hib (PRP-T) 2 completed Susan [place] [facility] [place] [facility] [place] 08/28/2022 16:00:24 Past Encounters Encounter ID Performer Location Encounter Start Date Encounter Closed Date Diagnosis/Indication Diagnosis SNOMED-CT Code Diagnosis ICD10 Code Diagnosis Note [id number] Faith Drake, DNP, SAW GRINDER-C, DATA SECURITY ADMINISTRATOR [address] [place] [address] 08/28/2022 15:38:56 08/28/2022 16:24:33 Fatigue 34302648 R53.83 [id number] Steven Phelps MD [facility] [address] [place], [place] [address] [address] 10/25/2022 13:19:40 10/25/2022 13:48:44 Pain in throat 824765698 R07.0 Streptococ courtney sore throat 77362535 J02.0 [id number] Faith Drake DNP, SAW GRINDER-C, DATA SECURITY ADMINISTRATOR [facility] [address] [facility] [address] 05/07/2023 15:23:31 05/07/2023 15:44:34 Acute serous otitis media of left ear [id number] 231070 H65.02 [id number] Faith Drake DNP, SAW GRINDER-C, DATA SECURITY ADMINISTRATOR [facility] [address] [place] [address] 05/08/2023 15:01:54 05/08/2023 15:23:57 Acute serous otitis media of left ear 4572235517 372873 H65.02 Impacted cerumen 1692258 6 H61.22 [id number] Flex Carrion MD [facility] [address] [facility] [address] 10/04/2023 13:30:50 10/04/2023 13:44:08 Ingrowing nail of toe of right foot 6694201210 9543317 L60.0 Start antibiotic s and refer to podiatry. [id number] Leslie Carrion APRN [facility] [address] [facility] [address] 10/24/2023 08:36:49 10/24/2023 09:29:02 Pain in throat 821894334 R07.0 Influenza caused by Influenza B virus 84391015 J10.1 Health Concerns Section Related Observation LastModified by Organization Detai ls LastModified Time None Recorded Concern Status LastModified by Organization Details LastModified Time None Recorded Advance Directives Directive None Recorded Payers Insurance Date Sequence Insurance Name Policy Number Policy Lewis Covered Member ID Lewis Member ID Guarantor Name 10/24/2023 1 AETNA [facility] (MEDICAID HMO) Juliana Martinez [id number] Juliana Martinez Notes Date Note Type Note Provider Name and Address Organization Details Recorded Time 10/25/2022 text/html I started feelin g ill two days ago and I had a bad sore throat. no fevers or chills. I have headaches and no nausea. LMP last week and normal and on time Steven Phelps MD [address] [facility], [place], [address], [facility] [place] 10/25/2022 13:40:50 05/07/2023 text/html Per patietn she cant hear out of her left ear. Patient says she went swimming the [place]. Patient says that it has progressively gotten worse. Patient has pain in her left ear. Patient says she has tried everything to improve condition. Faith Drake DNP, KESHAWN-C, DATA SECURITY ADMINISTRATOR [address] , [place], [address], [facility] [place] 05/07/2023 16:10:37 05/08/2023 text/html Per patietn she cant hear out of her left ear. Patient says she went swimming [place]. Patient says that it has progressively gotten worse. Patient has pain in her left ear. Patient says she has tried everything to improve condition. She was here yesterday and given drops and stahist. Faith Drake DNP, ZEVC, DATA SECURITY ADMINISTRATOR [address] , [place], [address], [facility] [place] 05/12/2023 09:06:39 10/04/2023 text/html Right great toe seems infected. She tried to dig out an ingrown toenail a couple weeks ago, since then redness, swelling, pain, and drainage have developed. Has had issues with ingrown toenail for some time. No fever or other symptoms. Flex Carrion MD [address] , [place], [address], [facility] [place] 10/04/2023 13:48:44 10/24/2023 text/html Upper Respirator y SymptomsReported bypatient.Location:he ad; chest; throat; nasal; face Quality:congested;dry cough;nasal discharge Severity:no pain Duration:symptoms began 2 days ago Onset/Timing:sudden Context:no sick contacts; no foreign travel; non-smoker Alleviating Factors:not taken anything Associated Symptoms:no chest pain; no sputum production; no shortness of breath; no wheezing; no cyanosis; no change in number of pillows needed to sleep at night; no sweats; no fever; no morning cough; no vomiting; no diarrhea; no rash; no nausea; no chills; no malaise; no conjunctivitis;fatigu e;sore throat;headache Leslie Carrion, PARRIS [address] , [place], [address], [facility] [place] 10/24/2023 09:28:02 OBGyn Episode No OBEpisode recorded.
--- OUTSIDE RECORDS SUMMARY | 2025-04-18 08:46 | XMS_ITS | Clinical Summary ---
Author Organization [facility] Address [address] [place] [address] Care Team Providers Care [employer] Installation Crew Member Name Role Phone Roseanne Solis PA-C Primary Care Provider [phone] Allergies No known active allergies Medications escitalopram (LEXAPRO) 10 MG tablet Take 10 mg by mouth daily Active Cyanocobalamin (VITAMIN B 12 PO)Indications: unknown dose Take by mouth 2 times daily Indications: unknown dose Active hydrOXYzine (ATARAX) 10 MG tablet Take 10 mg by mouth nightly Active Social History Tobacco Use Types Packs/Day Years [...] on file Sexual Orientation Not on file Last Filed Vital Signs Vital Sign Reading Time Taken Comments Blood Pressure 127/81 02/05/2019 4:20 PM EDT Pulse 95 02/05/2019 4:20 PM EDT Temperature 36.4 C (97.5 F) 02/05/2019 4:20 PM EDT Respiratory Rate 18 02/05/2019 4:20 PM EDT Oxygen Saturation 99% 02/05/2019 4:20 PM EDT Inhaled Oxygen Concentration - - Weight 95.7 kg (211 lb) 02/05/2019 4:25 PM EDT Height 165.1 cm (5' 5 ) 02/05/2019 4:25 PM EDT Body Mass Index 35.11 02/05/2019 4:25 PM EDT Plan of Treatment Not on file Insurance AETNA [facility] Care Teams [employer] Installation Crew Member Relationship Specialty Start Date End Date Roseanne Solis PA-C [address] [place] [id number] PCP - General Physician Telecommunications Network Planner 09/18/21
== END 2025-04-15 23:59 | disposition home or self-care (01) ==
LOC: LAB.DROPOF 04-18 08:42
PROVIDERS: PCP Family Medicine; Visit Provider Family Medicine
DX: R79.89 Other specified abnormal findings of blood chemistry (principal)
CPT/HCPCS: 80053; 84436; 84443; 84479; 85025